=== PATIENT | female | born 1930 | race Caucasian/White ===

== ENCOUNTER 2016-08-19 | Outpatient (CLI) | payer MEDICARE, OTHER | END 2016-08-19 08:27 | disposition EMS.NT ==

== ENCOUNTER 2018-09-27 18:55 | Outpatient (CLI) | payer SELFPAY | END 2018-09-27 18:56 | disposition EMS.NT | LOC: EMS 18:55 | PROVIDERS: ATTEND Surgery | DX: R53.1 Weakness (principal) ==

== ENCOUNTER 2018-09-28 11:25 | Outpatient (CLI) | payer MEDICARE, OTHER, MEDICAID | END 2018-09-28 11:26 | disposition critical access hospital (66) | LOC: EMS 11:25 | PROVIDERS: ATTEND Surgery | DX: R53.1 Weakness (principal); R30.9 Painful micturition, unspecified; R35.0 Frequency of micturition | CPT/HCPCS: A0425; A0429 ==

== ENCOUNTER 2018-09-28 11:47 | Inpatient (IN) | payer MEDICARE, OTHER, MEDICAID ==
[2018-09-28 12:21] LABS: BILIRUBIN,URINE NEGATIVE (NEGATIVE); GLUCOSE, URINE (UA) NEGATIVE (NEGATIVE); KETONES,URINE (UA) NEGATIVE (NEGATIVE); LEUKOCYTE ESTERASE, URINE NEGATIVE (NEGATIVE); NITRITE,URINE NEGATIVE (NEGATIVE); OCCULT BLOOD,URINE NEGATIVE (NEGATIVE); PH,URINE 5.5 PH (5.0-7.5); PROTEIN,URINE NEGATIVE (NEGATIVE); UROBILINOGEN,URINE 0.2 (NORMAL) E.U./dL (NORMAL)
[2018-09-28 12:22] LABS: CLARITY,URINE CLEAR (CLEAR)
--- NOTE | 2018-09-28 13:00 | ED Physician Documentation ---
History of Present Illness - Stated complaint Stated Complaint: WEAKNESS - Chief complaint Chief Complaint: General - History obtained from History obtained from: Patient, Family, EMS - History of Present Illness Timing: How many days ago (4) - Additonal information Additional information: 88-year-old female who is usually able to get herself out of bed use a walker and get to the bathroom has over the past 4 days been unable to even sit up in bed. She states that she feels generally weak and she has not had other specific symptoms. She did not feel that she was ill prior to all of this. She last saw her primary care doctor about 2 weeks ago on a routine visit. Review of Systems Constitutional: denies: Fever Nose: denies: Rhinorrhea / runny nose Respiratory: reports: Cough. denies: Dyspnea GI: denies: Abdominal Pain, Nausea, Vomiting, Constipation, Diarrhea : denies: Dysuria, Frequency Skin: denies: Rash Musculoskeletal: denies: Neck pain, Back pain, Extremity pain Neurologic: reports: Generalized weakness. denies: Focal weakness, Numbness, Difficulty speaking PD PAST MEDICAL HISTORY - Past Medical History Cardiovascular: Hypertension, High cholesterol Respiratory: Shortness of breath, Other Endocrine/Autoimmune: None GI: None : None HEENT: None Psych: None Musculoskeletal: Osteoarthritis, Fibromyalgia, Fatigue, Chronic back pain Derm: Other - Past Surgical History HEENT: Tonsil/Adenoidectomy - Present Medications Home Medications: Ambulatory Orders Medication Instructions Recorded Confirmed Aspirin [Adult Low Dose Aspirin EC] 81 mg PO DAILY 09/06/15 09/06/15 Calcium/D3/Mag Ox/Administrative Services Specialist/Gustavo/Zn 1 each PO DAILY 09/06/15 09/06/15 [Caltrate+D3 Plus Mineral Minis] Chlorthalidone 0 mg DAILY 09/06/15 09/06/15 Cholecalciferol (Vitamin D3) 1,000 unit PO DAILY 09/06/15 09/06/15 [Vitamin D] HYDROcod/ACETAM 5/325 [Vicodin 1 each PO DAILY 09/06/15 09/06/15 5/325] Multivitamin-Minerals No.55 100 mcg PO DAILY 09/06/15 09/06/15 [Centrum Flavor Burst Adult Chw] Pravastatin Sodium 40 mg PO DAILY 09/06/15 09/06/15 amLODIPine [Norvasc] 10 mg PO DAILY 09/06/15 09/06/15 - Allergies Allergies/Adverse Reactions: Allergies Allergy/AdvReac Type Severity Reaction Status Date / Time codeine AdvReac Emesis Verified 09/28/18 12:24 PD ED PE NORMAL - Vitals Vital signs reviewed: Yes (hypertensive and hypoxic ) - General General: Alert and oriented X 3, No acute distress, Well developed/nourished - HEENT HEENT: Atraumatic, PERRL, EOMI, Other (dry mucous membranes ) - Neck Neck: Supple, no meningeal sign - Cardiac Cardiac: No murmur, Other (tachy to 100) - Respiratory Respiratory: No respiratory distress, Other (bibasilar rhonchi) - Abdomen Abdomen: Soft, Non tender, Other (0bese) - Back Back: No CVA TTP, No spinal TTP - Derm Derm: Normal color, Warm and dry, No rash - Extremities Extremities: No deformity, No edema, Other (There is scaly erythematous skin to the anterior calf bilaterally ) - Neuro Neuro: Alert and oriented X 3, residential real estate agent 2-12 intact, No motor deficit, No sensory deficit, Normal speech, Other (weakness is apparent generally ) Eye Opening: Spontaneous Motor: Obeys Commands Verbal: Oriented GCS Score: 15 - Psych Psych: Normal mood, Normal affect Results - Vitals Vitals: Vital Signs - 24 hr 09/28/18 09/28/18 09/28/18 12:00 14:48 14:59 Temperature 36.9 C Heart Rate 87 98 Respiratory 20 Rate Blood Pressure 155/68 H 164/59 H O2 Saturation 91 L 90 L 92 Oxygen O2 Source Nasal cannula - EKG (time done) 1324 Rate: Rate (enter#) (89) Rhythm: Atrial fibrillation [place]: LAD QRS: Low voltage Ischemia: Q waves, Non specific changes Compare to prior EKG: Old EKG unavailable Computer interpretation: Agree with computer - Labs Labs: Laboratory Tests 09/28/18 09/28/18 09/28/18 02:44 02:44 12:10 WBC RBC Hgb Hct MCV MCH MCHC RDW Plt Count MPV Neut # (Auto) Lymph # (Auto) [place] # (Auto) Eos # (Auto) Baso # (Auto) Absolute Nucleated RBC Nucleated RBC % Sodium 133 L Potassium 4.9 Chloride 103 Carbon Dioxide 22 Anion Gap 8.0 BUN 40 H Creatinine 1.5 H Estimated GFR (MDRD) 33 L Glucose 102 H Lactic Acid 1.1 Calcium 8.8 Total Bilirubin 0.7 AST 34 ALT 27 Alkaline Phosphatase 98 Troponin I B-Natriuretic Peptide Total Protein 6.1 L Albumin 2.6 L Globulin 3.5 Albumin/Globulin Ratio 0.7 L Lipase 28 Urine Color YELLOW Urine Clarity CLEAR Urine pH 5.5 Ur Specific [place] 1.025 Urine Protein NEGATIVE Urine Glucose (UA) NEGATIVE Urine Ketones NEGATIVE Urine Occult Blood NEGATIVE Urine Nitrite NEGATIVE Urine Bilirubin NEGATIVE Urine Urobilinogen 0.2 (NORMAL) Ur Leukocyte Esterase NEGATIVE Ur Microscopic Review NOT INDICATED Urine Culture Comments NOT INDICATED 09/28/18 09/28/18 09/28/18 13:10 13:10 13:10 WBC 18.3 H RBC 3.77 L Hgb 10.7 L Hct 33.3 L MCV 88.3 MCH 28.4 MCHC 32.1 RDW 18.3 H Plt Count 315 MPV 10.2 Neut # (Auto) 16.3 H Lymph # (Auto) 0.7 L [place] # (Auto) 1.2 H Eos # (Auto) 0.0 Baso # (Auto) 0.1 Absolute Nucleated RBC 0.00 Nucleated RBC % 0.0 Sodium Potassium Chloride Carbon Dioxide Anion Gap BUN Creatinine Estimated GFR (MDRD) Glucose Lactic Acid Calcium Total Bilirubin AST ALT Alkaline Phosphatase Troponin I 0.14 B-Natriuretic Peptide 194 H Total Protein Albumin Globulin Albumin/Globulin Ratio Lipase Urine Color Urine Clarity Urine pH Ur Specific [place] Urine Protein Urine Glucose (UA) Urine Ketones Urine Occult Blood Urine Nitrite Urine Bilirubin Urine Urobilinogen Ur Leukocyte Esterase Ur Microscopic Review Urine Culture Comments - Rads (name of study) chest 1 veiw Radiology: Prelim report reviewed, EMP read indepedently (looks like bibasilar infiltrate. ), See rad report Procedures - IVC sono (time) 1250 Bedside IVC sono: IVC measures (cm) (1.09), Dehydration (est 1 liter deficit.) PD MEDICAL DECISION MAKING - ED course Complexity details: reviewed old records, reviewed results, re-evaluated patient, considered differential, d/w patient, d/w family ED course: 88-year-old female with generalized weakness is afebrile is mildly hypoxic and has bibasilar rhonchi. I suspect she may have some pneumonia she is dehydrated on interrogation of the inferior vena cava and she is administered saline as well. The patient has elevated white blood cell count she is hypoxic in the low 90s and she has bibasilar infiltrate on chest x-ray. She is administered Rocephin as well as saline and will need admission to the hospital. Departure - Departure Disposition: [facility] DC/Xfer Clinical Impression: Pneumonia Qualifiers: Pneumonia type: due to unspecified organism Laterality: bilateral Lung location: lower lobe of lung Qualified Code(s): J18.1 - Lobar pneumonia, unspecified organism Condition: Fair
[2018-09-28] MEDS ORDERED: SODIUM CHLORIDE 0.9% 1,000 ML IV ONE (13:02)
[2018-09-28 13:50] LABS: BASOPHILS # (AUTO) 0.1 10^3/uL (0.0-0.1); BASOPHILS % (AUTO) 0.6 %; EOSINOPHILS % (AUTO) 0.1 %; HGB - HEMOGLOBIN 10.7 g/dL (12.0-16.0); LYMPHOCYTES # (AUTO) 0.7 10^3/uL (1.5-3.5); LYMPHOCYTES % (AUTO) 3.6 %; MEAN CORPUSCULAR HEMOGLOBIN 28.4 pg (27.0-31.0); MEAN CORPUSCULAR HGB CONC 32.1 g/dL (32.0-36.0); MEAN CORPUSCULAR VOLUME 88.3 fL (81.0-99.0); MEAN PLATELET VOLUME 10.2 fL (7.9-10.8); MONOCYTES # (AUTO) 1.2 10^3/uL (0.0-1.0); MONOCYTES % (AUTO) 6.6 %; NEUTROPHILS # (AUTO) 16.3 10^3/uL (1.5-6.6); NEUTROPHILS % (AUTO) 89.1 %; PLT - PLATELET COUNT 315 10^3/uL (130-450); RED BLOOD COUNT 3.77 10^6/uL (4.20-5.40); RED CELL DISTRIBUTION WIDTH 18.3 % (12.0-15.0); WHITE BLOOD COUNT 18.3 x10^3/uL (4.8-10.8)
[2018-09-28 14:02] LABS: ALBUMIN 2.6 g/dL (3.2-5.5); ALBUMIN/GLOBULIN RATIO 0.7 (1.0-2.2); BILIRUBIN,TOTAL 0.7 mg/dL (0.2-1.0); CALCIUM 8.8 mg/dL (8.5-10.3); CREATININE 1.5 mg/dL (0.4-1.0); TOTAL PROTEIN 6.1 g/dL (6.7-8.2)
[2018-09-28] MEDS ORDERED: cefTRIAXone 1 GM in SODIUM CHLORIDE 0.9% MINIBAG 100 ML IV STA (14:28)
[2018-09-28] MEDS ORDERED: KETOROLAC 30 MG/ML VIAL IVP STA (14:29)
[2018-09-28] MEDS ORDERED: HYDROmorphone 1 MG/ML CARPUJECT IVP STA (15:41)
[2018-09-28] MEDS ORDERED: ONDANSETRON 4 MG/2 ML VIAL IVP STA (15:41)
[2018-09-28] MEDS ORDERED: ACETAMINOPHEN 325 MG TABLET PO PRN (15:47)
[2018-09-28] MEDS ORDERED: TEMAZEPAM 15 MG CAPSULE PO PRN (15:47)
--- NOTE | 2018-09-28 18:22 | HISTORY & PHYSICAL EXAMINATION ---
Chief Complaint - Chief Complaint Chief Complaint: shortness of breath, productive cough Respiratory Admission HPI - Admitted From Admitted from: ED - History Obtained From Records Reviewed: RN notes reviewed, Old records reviewed History obtained from: Patient, Family Exam limitations: Other - History of Present Illness Severity at the worst: reports: Moderate Context of Onset: reports: Exertion, Inspiration Timing: reports: Gradual onset (over the past 4 days) Improved with: reports: Nothing Worsened by: reports: Exertion, Movement Associated symptoms: reports: Nausea, Feeling faint / dizzy, General weakness HPI Comment/Other: Otilia Diane is a morbidly obese 88-year old female with a past medical history of hypertension, hyperlipidemia, chronic pain, dementia, 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 The patient was accompanied by her , Nacho who reports that his has not been acting herself beginning about 4 days ago. She normally can walk with her walker and get to her chair where she watches TV all day or to the bathroom. She reported that she has been generally weak, with a poor appetite, and a productive cough. They believe that she last saw her PCP in [place] a few weeks ago for a regular check up. Upon arrival to the ED the patient was found to be hypoxic with a room air oxygen saturation of 89%, temp of 36.9, heart rate of 98, respiratory rate of 22, B/P of 164/59. Labs show an elevated WBC count of 18.3, anemia with an H/H of 10.7/33.3, an elevated troponin of 0.14, BNP of 194, creatinine of 1.5 with an unknown baseline, sodium of 133, K of 4.9, BUN of 40, and a low GFR of 33. A urine sample appeared normal. Imaging confirmed bilateral PNA, an IVC US measurement showed dehydration with a deficit ~ 1L. On exam, she denies chest pain, chest pressure, nausea, dizziness, and denied a heart history, although a poor historian. She denies fevers, chills, vomiting, or diarrhea at home but admits to her also being sick. She will be admitted for treatment of PNA as an inpatient. PMH/PSH - Past Medical History Cardiovascular: positive: Congestive heart failure, Hypertension, High cholesterol, Peripheral Vascular Disease, Atrial fibrillation, Murmur, Arrhythmia Respiratory: positive: COPD, Pneumonia, Shortness of breath, Sleep apnea, Other Neuro: positive: Alzhiemer's, Dementia, Headaches, Tremors Endocrine/Autoimmune: positive: None GI: positive: GERD : positive: Incontinence, Renal insuffiency, Nocturia HEENT: positive: Chronic vision loss, Chronic hearing loss Psych: positive: Depression Musculoskeletal: positive: Osteoarthritis, Fibromyalgia, Fatigue, Chronic back pain Derm: positive: Other MRSA Hx?: No - Past Surgical History HEENT: positive: Tonsil/Adenoidectomy Social & Family Hx - Living Situation Living Arrangement: At home Living Situation: With spouse/s.o. - Social History Does the pt smoke?: No Smoking Status: Former smoker (age [age]) Does the pt drink ETOH?: No Does the pt have substance abuse?: No - POLST Patient has POLST: No POLST Status: DNR - Family History Family History: Mother: , CAD, Father: , CAD Meds/Allgy - Home Medications Home Medications: Ambulatory Orders Medication Instructions Recorded Confirmed Aspirin [Adult Low Dose Aspirin EC] 81 mg PO DAILY 09/06/15 09/06/15 Calcium/D3/Mag Ox/Hvac Design Engineer/Gustavo/Zn 1 each PO DAILY 09/06/15 09/06/15 [Caltrate+D3 Plus Mineral Minis] Chlorthalidone 0 mg DAILY 09/06/15 09/06/15 Cholecalciferol (Vitamin D3) 1,000 unit PO DAILY 09/06/15 09/06/15 [Vitamin D] HYDROcod/ACETAM 5/325 [Vicodin 1 each PO DAILY 09/06/15 09/06/15 5/325] Multivitamin-Minerals No.55 100 mcg PO DAILY 09/06/15 09/06/15 [Centrum Flavor Burst Adult Chw] Pravastatin Sodium 40 mg PO DAILY 09/06/15 09/06/15 amLODIPine [Norvasc] 10 mg PO DAILY 09/06/15 09/06/15 - Allergies Allergies/Adverse Reactions: Allergies Allergy/AdvReac Type Severity Reaction Status Date / Time codeine AdvReac Emesis Verified 09/28/18 12:24 Prior Level of Functionality: up with walker, low level of functioning Exam - Vital Signs Reviewed Vital Signs: Yes Vital Signs: Vital Signs x48h Temp Pulse Pulse Resp BP BP Pulse Ox 09/28/18 17:58 36.8 C 80 20 146/52 H 93 09/28/18 16:48 36.8 C 93 20 138/63 H 92 09/28/18 14:59 92 09/28/18 14:48 98 164/59 H 90 L 09/28/18 12:00 36.9 C 87 20 155/68 H 91 L - Physical Exam General Appearance: positive: No acute distress, Alert, Lethargic Eyes Bilateral: positive: PERRL ENT: positive: Pharynx nml, Dry mucous membranes Neck: positive: No JVD, Trachea midline, Lymphadenopathy (R), Lymphadenopathy (L), Stiff neck Respiratory: positive: Chest non-tender, Wheezes, Rhonchi Cardiovascular: positive: Irregularly irregular, Tachycardia, Systolic murmur, Gallop/S3, Decreased pulse(s) Peripheral Pulses: positive: 1+ Abdomen: positive: Non-tender, Nml bowel sounds, Other (rounded, soft) Back: positive: Nml inspection Skin: positive: No rash, Warm, Dry, Cyanosis Extremities: positive: Non-tender, Pedal edema (venous status ulcers- BLE edema), Joint swelling Neurologic/Psychiatric: positive: Disoriented to place, Disoriented to time, W eakness, Sensory loss, Depressed mood/affect, Other (baseline dementia) Reflexes: Bicep (R): 2+, Bicep (L): 2+ Results - Lab Results Lab results reviewed: Yes Fish Bones: 09/28/18 13:10 09/28/18 02:44 Other Lab Results: Lab Results x24hrs 09/28/18 09/28/18 09/28/18 Range/Units 13:10 13:10 13:10 WBC 18.3 H (4.8-10.8) x10^3/uL RBC 3.77 L (4.20-5.40) 10^6/uL Hgb 10.7 L (12.0-16.0) g/dL Hct 33.3 L (37.0-47.0) % MCV 88.3 (81.0-99.0) fL MCH 28.4 (27.0-31.0) pg MCHC 32.1 (32.0-36.0) g/dL RDW 18.3 H (12.0-15.0) % Plt Count 315 (130-450) 10^3/uL MPV 10.2 (7.9-10.8) fL Neut # (Auto) 16.3 H (1.5-6.6) 10^3/uL Lymph # (Auto) 0.7 L (1.5-3.5) 10^3/uL [place] # (Auto) 1.2 H (0.0-1.0) 10^3/uL Eos # (Auto) 0.0 (0.0-0.7) 10^3/uL Baso # (Auto) 0.1 (0.0-0.1) 10^3/uL Absolute Nucleated RBC 0.00 x10^3/uL Nucleated RBC % 0.0 /100WBC Sodium (135-145) mmol/L Potassium (3.5-5.0) mmol/L Chloride (101-111) mmol/L Carbon Dioxide (21-32) mmol/L Anion Gap (6-13) BUN (6-20) mg/dL Creatinine (0.4-1.0) mg/dL Estimated GFR (MDRD) (>89) Glucose (70-100) mg/dL Lactic Acid (0.5-2.2) mmol/L Calcium (8.5-10.3) mg/dL Total Bilirubin (0.2-1.0) mg/dL AST (10-42) IU/L ALT (10-60) IU/L Alkaline Phosphatase (42-121) IU/L Troponin I 0.14 (<0.49) ng/mL B-Natriuretic Peptide 194 H (5-100) pg/mL Total Protein (6.7-8.2) g/dL Albumin (3.2-5.5) g/dL Globulin (2.1-4.2) g/dL Albumin/Globulin Ratio (1.0-2.2) Lipase (22-51) U/L Urine Color Urine Clarity (CLEAR) Urine pH (5.0-7.5) PH Ur Specific [place] (1.002-1.030) Urine Protein (NEGATIVE) mg/dL Urine Glucose (UA) (NEGATIVE) mg/dL Urine Ketones (NEGATIVE) mg/dL Urine Occult Blood (NEGATIVE) Urine Nitrite (NEGATIVE) Urine Bilirubin (NEGATIVE) Urine Urobilinogen (NORMAL) E.U./dL Ur Leukocyte Esterase (NEGATIVE) Ur Microscopic Review Urine Culture Comments 09/28/18 09/28/18 09/28/18 Range/Units 12:10 02:44 02:44 WBC (4.8-10.8) x10^3/uL RBC (4.20-5.40) 10^6/uL Hgb (12.0-16.0) g/dL Hct (37.0-47.0) % MCV (81.0-99.0) fL MCH (27.0-31.0) pg MCHC (32.0-36.0) g/dL RDW (12.0-15.0) % Plt Count (130-450) 10^3/uL MPV (7.9-10.8) fL Neut # (Auto) (1.5-6.6) 10^3/uL Lymph # (Auto) (1.5-3.5) 10^3/uL [place] # (Auto) (0.0-1.0) 10^3/uL Eos # (Auto) (0.0-0.7) 10^3/uL Baso # (Auto) (0.0-0.1) 10^3/uL Absolute Nucleated RBC x10^3/uL Nucleated RBC % /100WBC Sodium 133 L (135-145) mmol/L Potassium 4.9 (3.5-5.0) mmol/L Chloride 103 (101-111) mmol/L Carbon Dioxide 22 (21-32) mmol/L Anion Gap 8.0 (6-13) BUN 40 H (6-20) mg/dL Creatinine 1.5 H (0.4-1.0) mg/dL Estimated GFR (MDRD) 33 L (>89) Glucose 102 H (70-100) mg/dL Lactic Acid 1.1 (0.5-2.2) mmol/L Calcium 8.8 (8.5-10.3) mg/dL Total Bilirubin 0.7 (0.2-1.0) mg/dL AST 34 (10-42) IU/L ALT 27 (10-60) IU/L Alkaline Phosphatase 98 (42-121) IU/L Troponin I (<0.49) ng/mL B-Natriuretic Peptide (5-100) pg/mL Total Protein 6.1 L (6.7-8.2) g/dL Albumin 2.6 L (3.2-5.5) g/dL Globulin 3.5 (2.1-4.2) g/dL Albumin/Globulin Ratio 0.7 L (1.0-2.2) Lipase 28 (22-51) U/L Urine Color YELLOW Urine Clarity CLEAR (CLEAR) Urine pH 5.5 (5.0-7.5) PH Ur Specific [place] 1.025 (1.002-1.030) Urine Protein NEGATIVE (NEGATIVE) mg/dL Urine Glucose (UA) NEGATIVE (NEGATIVE) mg/dL Urine Ketones NEGATIVE (NEGATIVE) mg/dL Urine Occult Blood NEGATIVE (NEGATIVE) Urine Nitrite NEGATIVE (NEGATIVE) Urine Bilirubin NEGATIVE (NEGATIVE) Urine Urobilinogen 0.2 (NORMAL) (NORMAL) E.U./dL Ur Leukocyte Esterase NEGATIVE (NEGATIVE) Ur Microscopic Review NOT INDICATED Urine Culture Comments NOT INDICATED - Diagnostic Imaging Results Diagnostic Imaging Results: positive: Prelim report reviewed - EKG Results EKG Interpreted Independently: Yes EKG Comparison: positive: No prior EKG EKG Findings: a fib, re-ordered Sepsis Event Note (H) - Evaluation Current Stage of Sepsis: Ruled out Impression/Plan - Problem List Problem List: Bilateral pneumonia: Preliminary results show bilateral PNA, got Rocephin in the ED. Will continue with unasyn as I suspect aspiration with evidence of choking while drinking milk. COPD with Hypoxia: Tobacco dependence from age [age]. No home oxygen use. Hypoxia upon admission in the ED. Continue oxygen, respiratory cares, nebulizers and avoid steroids in the setting of the elevated troponin. SERGE: Unknown baseline creatinine. 1.5 upon admission, dehydration was found on IVC US done in the ED with ~ 1L deficit. Atrial fibrillation: Patient denies Hx of this, no anticoagulants, no rate control meds on preliminary med list. Elevated troponin: Not informed of this elevation prior to acceptance, but found to be 0.14 when reviewing the records. Recheck in 6 hours, x2. No chest pain on exam. Await echo results. Patient denies cardiac interventions and is a DNR. May not be a candidate for angioplasty given her profound dementia. Morbid obesity: Life long, exacerbated by CHF. Low tolerance to activity. Moderate dementia: Unknown how much of her confusion is baseline, verses chronic dementia. Lives independently with her and they deny recent falls. Scattered bruising is appreciated upon exam. Core Measures - Anticipated LOS I expect patient to be DC'd or transferred within 96 hours.: Yes - DVT/VTE - Prophylaxis VTE/DVT Device ordered at admit?: Yes VTE/DVT Prophylaxis med ordered at admit?: Yes - Stroke - Rehab Assessment Rehab services assessment to be ordered?: Yes - AMI - Statin at Admit Aspirin Prescribed on Admit: Yes
[2018-09-28] MEDS ORDERED: LEVALBUTEROL 1.25 MG/3 ML NEB INH PRN (20:15)
[2018-09-28] MEDS: ASPIRIN 325 MG TABLET PO SCH (20:55)
[2018-09-28] MEDS: ATORVASTATIN 40 MG TABLET PO SCH (20:55)
[2018-09-28] MEDS: SODIUM CHLORIDE FLUSH 0.9% 10 ML SYRINGE IVP SCH (20:56)
[2018-09-28] MEDS ORDERED: AMPICILLIN/SULBACTAM 1.5 GM in SODIUM CHLORIDE 0.9% MINIBAG 100 ML IV SCH (21:00)
[2018-09-28] MEDS: SODIUM CHLORIDE 0.9% 1,000 ML IV SCH (21:03)
[2018-09-28] MEDS: AMPICILLIN/SULBACTAM 1.5 GM in SODIUM CHLORIDE 0.9% MINIBAG 100 ML IV SCH (21:03)
[2018-09-29] MEDS: SODIUM CHLORIDE FLUSH 0.9% 10 ML SYRINGE IVP SCH ×4 (01:50→23:53)
[2018-09-29 05:03] LABS: BASOPHILS % (AUTO) 0.3 %; EOSINOPHILS # (AUTO) 0.1 10^3/uL (0.0-0.7); EOSINOPHILS % (AUTO) 0.7 %; HGB - HEMOGLOBIN 9.5 g/dL (12.0-16.0); LYMPHOCYTES # (AUTO) 0.9 10^3/uL (1.5-3.5); LYMPHOCYTES % (AUTO) 7.1 %; MEAN CORPUSCULAR HEMOGLOBIN 28.1 pg (27.0-31.0); MEAN CORPUSCULAR HGB CONC 30.8 g/dL (32.0-36.0); MEAN CORPUSCULAR VOLUME 91.1 fL (81.0-99.0); MEAN PLATELET VOLUME 9.8 fL (7.9-10.8); MONOCYTES # (AUTO) 1.1 10^3/uL (0.0-1.0); MONOCYTES % (AUTO) 8.8 %; NEUTROPHILS # (AUTO) 10.1 10^3/uL (1.5-6.6); NEUTROPHILS % (AUTO) 83.1 %; PLT - PLATELET COUNT 246 10^3/uL (130-450); RED BLOOD COUNT 3.38 10^6/uL (4.20-5.40); RED CELL DISTRIBUTION WIDTH 18.3 % (12.0-15.0); WHITE BLOOD COUNT 12.1 x10^3/uL (4.8-10.8)
[2018-09-29 05:15] LABS: ALBUMIN/GLOBULIN RATIO 0.6 (1.0-2.2); BILIRUBIN,TOTAL 0.4 mg/dL (0.2-1.0); CREATININE 1.6 mg/dL (0.4-1.0); MAGNESIUM 2.3 mg/dL (1.7-2.8); TOTAL PROTEIN 5.1 g/dL (6.7-8.2)
[2018-09-29] MEDS: PANTOPRAZOLE 40 MG TABLET PO SCH (06:28)
[2018-09-29] MEDS: LEVALBUTEROL 1.25 MG/3 ML NEB INH SCH ×5 (09:09→19:22)
[2018-09-29] MEDS: SODIUM CHLORIDE 0.9% 1,000 ML IV SCH (09:37)
[2018-09-29] MEDS: AMPICILLIN/SULBACTAM 1.5 GM in SODIUM CHLORIDE 0.9% MINIBAG 100 ML IV SCH ×2 (09:38→20:08)
[2018-09-29] MEDS: ASPIRIN 325 MG TABLET PO SCH (09:40)
[2018-09-29] MEDS: HEPARIN 5,000 UNIT/ML VIAL SUBQ SCH ×3 (09:40→20:12)
[2018-09-29] MEDS: POLYETHYLENE GLYCOL 3350 17 GM PACKET PO SCH (09:40)
[2018-09-29] MEDS ORDERED: AZITHROMYCIN INJ 500 MG in SODIUM CHLORIDE 0.9% 250 ML IV SCH (11:00)
--- NOTE | 2018-09-29 12:21 | XRAY Report ---
Reason: sob Procedure Date: 09/29/2018 Accession Number: [id number] / [id number] Procedure: XR - Chest 1 View X-Ray CPT Code: 80053 FULL RESULT: EXAM: CHEST RADIOGRAPHY EXAM DATE: 09/29/2018 12:02 PM. CLINICAL HISTORY: Shortness of breath COMPARISON: CHEST 1 VIEW 09/28/2018 2:08 PM. TECHNIQUE: 1 view. FINDINGS: Lungs/Pleura: Lungs are hypoinflated. There is perihilar vascular crowding and increase in perihilar and basilar atelectasis. Possible small effusions. Prominence of the pulmonary vascular padding suggesting superimposed edema. Mediastinum: Heart size is borderline enlarged for technique. Mediastinal and hilar contours are unchanged. Other: None. IMPRESSION: Interval worsening in fluid status and aeration. Increase in perihilar and basilar atelectasis, probable small bilateral effusion and mild superimposed edema pattern. RADIA
[2018-09-29] MEDS: IPRATROPIUM 0.2 MG/ML NEB INH PRN (13:09)
[2018-09-29] MEDS: FUROSEMIDE 20 MG TABLET PO SCH (13:40)
[2018-09-29] MEDS: GABAPENTIN 300 MG CAPSULE PO SCH ×2 (13:41→20:08)
[2018-09-29] MEDS: LOSARTAN 50 MG TABLET PO SCH (13:41)
[2018-09-29] MEDS ORDERED: diltiaZEM CD 120 MG CAPSULE PO ONE (13:43)
[2018-09-29] MEDS: diltiaZEM CD 240 MG CAPSULE PO SCH (13:44)
[2018-09-29] MEDS: MORPHINE 2 MG/ML SYRINGE IVP PRN ×2 (14:23→21:10)
--- NOTE | 2018-09-29 15:16 | PROVIDER PROGRESS NOTE ---
Subjective - Prog Note Date Prog Note Date: 09/29/18 - Subjective Pt reports feeling: No change Subjective: pt present cough, SOB. pt need 6 lifer of O2 on NC with 93% sats. pt denies fever, chill, chest pain. Current Medications - Current Medications Current Medications: Active Medications Acetaminophen (Tylenol) 650 mg PO Q4HR PRN PRN Reason: Pain 1 to 4 Aspirin (Ecotrin) 81 mg PO DAILY COUNT INCLUDES THE [facility] Atorvastatin Calcium (Lipitor) 80 mg PO QPM COUNT INCLUDES THE [facility] Last Admin: 09/28/18 20:55 Dose: 80 mg Calcium Carbonate/Glycine (Oysco-500) 500 mg PO DAILY COUNT INCLUDES THE [facility] Chlorthalidone (Chlorthalidone) 25 mg PO DAILY COUNT INCLUDES THE [facility] Cholecalciferol (Vitamin D3) 1,000 unit PO DAILY COUNT INCLUDES THE [facility] Diltiazem HCl (Cardizem Cd) 240 mg PO DAILY COUNT INCLUDES THE [facility] Last Admin: 09/29/18 13:44 Dose: 240 mg Furosemide (Lasix) 20 mg PO BIDDIURETIC COUNT INCLUDES THE [facility] Last Admin: 09/29/18 13:40 Dose: 20 mg Gabapentin (Neurontin) 300 mg PO TID COUNT INCLUDES THE [facility] Last Admin: 09/29/18 13:41 Dose: 300 mg Heparin Sodium (Porcine) () 5,000 unit SUBQ BID COUNT INCLUDES THE [facility] Last Admin: 09/29/18 10:11 Dose: Not Given Ampicillin Sodium/Sulbactam (Sodium 1.5 gm/ Sodium Chloride) 100 mls @ 200 mls/hr IV Q12H COUNT INCLUDES THE [facility] Last Infusion: 09/29/18 10:13 Dose: Infused Azithromycin 500 mg/ Sodium (Chloride) 250 mls @ 250 mls/hr IV DAILY COUNT INCLUDES THE [facility] Last Infusion: 09/29/18 13:35 Dose: Infused Ipratropium [place] (Atrovent) 0.5 mg INH RTQ4H PRN PRN Reason: Shortness of Air/Wheezing Last Admin: 09/29/18 13:09 Dose: 0.5 mg Levalbuterol HCl (Xopenex) 1.25 mg INH Q4H PRN PRN Reason: Shortness of Air/Wheezing Levalbuterol HCl (Xopenex) 1.25 mg INH RTQ6H COUNT INCLUDES THE [facility] Last Admin: 09/29/18 13:09 Dose: 1.25 mg Losartan Potassium (Cozaar) 50 mg PO DAILY COUNT INCLUDES THE [facility] Last Admin: 09/29/18 13:41 Dose: 50 mg Morphine Sulfate (Morphine) 2 mg IVP Q2H PRN PRN Reason: PAIN Last Admin: 09/29/18 14:23 Dose: 2 mg Multi-Ingredient Ointment (Zinc Oxide) 1 applic TOP PRN PRN PRN Reason: Skin Care Pantoprazole Sodium (Protonix) 40 mg PO QDAC COUNT INCLUDES THE [facility] Last Admin: 09/29/18 06:28 Dose: Not Given Polyethylene Glycol (Miralax) 17 gm PO DAILY COUNT INCLUDES THE [facility] Last Admin: 09/29/18 09:40 Dose: 17 gm Sodium Chloride (Normal Saline Flush 0.9%) 10 ml IVP PRN PRN PRN Reason: NEEDED PER PROVIDER ORDERS Sodium Chloride (Normal Saline Flush 0.9%) 10 ml IVP 0100,0900,1700 COUNT INCLUDES THE [facility] Last Admin: 09/29/18 10:12 Dose: Not Given Temazepam (Restoril) 15 mg PO QPM PRN PRN Reason: Insomnia Aspirin [Adult Low Dose Aspirin EC] 81 mg PO DAILY 09/06/15 Calcium/D3/Mag Ox/[employer]/Gustavo/Zn [Caltrate+D3 Plus Mineral Minis] 1 each PO DAILY 09/06/15 Chlorthalidone 25 mg PO DAILY 09/06/15 Cholecalciferol (Vitamin D3) [Vitamin D] 1,000 unit PO DAILY 09/06/15 Multivitamin-Minerals No.55 [Centrum Flavor Burst Adult Chw] 100 mcg PO DAILY 09/06/15 Acetaminophen [Tylenol Extra Strength] 500 mg PO TID PRN 09/29/18 Atorvastatin Calcium 20 mg PO QPM 09/29/18 Furosemide [Lasix] 20 mg PO DAILY 09/29/18 Gabapentin [Neurontin] 300 mg PO TID 09/29/18 Losartan [Cozaar] 50 mg PO DAILY 09/29/18 Vitamin E (Dl,Tocopheryl Acet) [Vitamin E] 400 unit PO DAILY 09/29/18 diltiaZEM CD [Cardizem Cd] 240 mg PO DAILY 09/29/18 Objective - Vital Signs/Intake & Output Reviewed Vital Signs: Yes Vital Signs: Vital Signs x48h Temp Pulse Pulse Resp BP Pulse Ox 09/29/18 13:13 97 22 09/29/18 13:00 36.7 C 100 22 108/75 96 09/29/18 09:18 36.7 C 90 22 93 09/29/18 09:11 90 22 09/29/18 08:05 36.7 C 82 21 138/69 H 91 L Intake & Output: Intake & Output 09/26/18 09/27/18 09/28/18 09/29/18 23:59 23:59 23:59 23:59 Intake Total 1436 2030 Output Total 2049 500 Balance -614 1530 - Objective General Appearance: positive: Alert, Mild distress. negative: Lethargic Eyes Bilateral: positive: Normal inspection, PERRL, No lid inflammation, Conjunctivae nml ENT: positive: ENT inspection nml, Pharynx nml, No signs of dehydration. negative: Purulent nasal drainage, Pharyngeal erythema, Oral lesions Neck: positive: Nml inspection, Thyroid nml, No JVD. negative: Trachea midline, Thyromegaly, Lymphadenopathy (R), Lymphadenopathy (L), Stiff neck, Swelling/bruising, Tracheal deviation Respiratory: positive: Chest non-tender, Rhonchi. negative: Wheezes, Rales Cardiovascular: positive: Regular rate & rhythm, No murmur, No gallop. negative: Irregularly irregular, Extrasystoles, Tachycardia, Bradycardia, JVD present, Systolic murmur, Diastolic murmur Peripheral Pulses: 2+ Radial (R), 2+ Radial (L), 2+ Dorsalis pedis (R), 2+ Dorsalis pedis (L) Abdomen: positive: Non-tender, No organomegaly, Nml bowel sounds, No distention. negative: Tenderness, Guarding, Rebound Back: positive: Nml inspection. negative: CVA tenderness (R), CVA tenderness (L) Skin: positive: Color nml, No rash, Warm, Dry. negative: Cyanosis, Diaphoresis, Pallor Extremities: positive: Non-tender, Nml appearance. negative: Calf tenderness, Joint swelling, Maria D's sign/cords Neurologic/Psychiatric: positive: Oriented x3, Sensation nml, Mood/affect nml. negative: Weakness, Sensory loss, Facial droop, Slurred/abnml speech, Depressed mood/affect - Lab Results Fish Bones: 09/29/18 04:52 09/29/18 04:52 Other Labs: Lab Results x24hrs 09/29/18 09/29/18 09/29/18 Range/Units 04:52 04:52 04:52 WBC (4.8-10.8) x10^3/uL RBC (4.20-5.40) 10^6/uL Hgb (12.0-16.0) g/dL Hct (37.0-47.0) % MCV (81.0-99.0) fL MCH (27.0-31.0) pg MCHC (32.0-36.0) g/dL RDW (12.0-15.0) % Plt Count (130-450) 10^3/uL MPV (7.9-10.8) fL Neut # (Auto) (1.5-6.6) 10^3/uL Lymph # (Auto) (1.5-3.5) 10^3/uL [place] # (Auto) (0.0-1.0) 10^3/uL Eos # (Auto) (0.0-0.7) 10^3/uL Baso # (Auto) (0.0-0.1) 10^3/uL Absolute Nucleated RBC x10^3/uL Nucleated RBC % /100WBC Sodium 137 (135-145) mmol/L Potassium 5.1 H (3.5-5.0) mmol/L Chloride 108 (101-111) mmol/L Carbon Dioxide 22 (21-32) mmol/L Anion Gap 7.0 (6-13) BUN 40 H (6-20) mg/dL Creatinine 1.6 H (0.4-1.0) mg/dL Estimated GFR (MDRD) 31 L (>89) Glucose 95 (70-100) mg/dL Lactic Acid 0.8 (0.5-2.2) mmol/L Calcium 8.0 L (8.5-10.3) mg/dL Magnesium 2.3 (1.7-2.8) mg/dL Total Bilirubin 0.4 (0.2-1.0) mg/dL AST 35 (10-42) IU/L ALT 25 (10-60) IU/L Alkaline Phosphatase 82 (42-121) IU/L Troponin I (<0.49) ng/mL B-Natriuretic Peptide 353 H (5-100) pg/mL Total Protein 5.1 L (6.7-8.2) g/dL Albumin 2.0 L (3.2-5.5) g/dL Globulin 3.1 (2.1-4.2) g/dL Albumin/Globulin Ratio 0.6 L (1.0-2.2) 09/29/18 09/29/18 09/28/18 Range/Units 04:52 02:33 20:20 WBC 12.1 H (4.8-10.8) x10^3/uL RBC 3.38 L (4.20-5.40) 10^6/uL Hgb 9.5 L (12.0-16.0) g/dL Hct 30.8 L (37.0-47.0) % MCV 91.1 (81.0-99.0) fL MCH 28.1 (27.0-31.0) pg MCHC 30.8 L (32.0-36.0) g/dL RDW 18.3 H (12.0-15.0) % Plt Count 246 (130-450) 10^3/uL MPV 9.8 (7.9-10.8) fL Neut # (Auto) 10.1 H (1.5-6.6) 10^3/uL Lymph # (Auto) 0.9 L (1.5-3.5) 10^3/uL [place] # (Auto) 1.1 H (0.0-1.0) 10^3/uL Eos # (Auto) 0.1 (0.0-0.7) 10^3/uL Baso # (Auto) 0.0 (0.0-0.1) 10^3/uL Absolute Nucleated RBC 0.00 x10^3/uL Nucleated RBC % 0.0 /100WBC Sodium (135-145) mmol/L Potassium (3.5-5.0) mmol/L Chloride (101-111) mmol/L Carbon Dioxide (21-32) mmol/L Anion Gap (6-13) BUN (6-20) mg/dL Creatinine (0.4-1.0) mg/dL Estimated GFR (MDRD) (>89) Glucose (70-100) mg/dL Lactic Acid (0.5-2.2) mmol/L Calcium (8.5-10.3) mg/dL Magnesium (1.7-2.8) mg/dL Total Bilirubin (0.2-1.0) mg/dL AST (10-42) IU/L ALT (10-60) IU/L Alkaline Phosphatase (42-121) IU/L Troponin I 0.14 0.16 (<0.49) ng/mL B-Natriuretic Peptide (5-100) pg/mL Total Protein (6.7-8.2) g/dL Albumin (3.2-5.5) g/dL Globulin (2.1-4.2) g/dL Albumin/Globulin Ratio (1.0-2.2) ABX Reporting Has patient been on IV antibiotics over the past 48 hours?: Yes Sepsis Event Note (H) - Evaluation Current Stage of Sepsis: Ruled out Assessment/Plan - Problem List (1) Pneumonia Impression: (1) Bilateral pneumonia: Preliminary results show bilateral PNA, got Rocephin in the ED. Pt's WBC is reduced to 12. continue with unasyn as suspect aspiration with evidence of choking while drinking milk, add Azith covering for atypical COPD with Hypoxia: hx of Tobacco dependence from age [age]. No home oxygen use. Continue oxygen as needed, respiratory cares, nebulizers and avoid steroids in the setting of the elevated troponin. renal insufficience: Unknown baseline creatinine. hold IVF due to pulmonary effusion, SOB Atrial fibrillation: Hx, pt is on 81 mg Aspirin, pt is age 88, with Obese, and high risk of fall and bleeding. Cardizem for rate control meds on preliminary med list. Elevated troponin: Troponin serial are stable. EKG is without acute elevated ST Patient denies chest pain, denies cardiac interventions and pt is a DNR. Morbid obesity: Life long hx. will continue support, check A1C, consult for weight loss Moderate dementia: Unknown baseline. Lives independently with her , continue support pt. Qualifiers: Pneumonia type: due to unspecified organism Laterality: bilateral Lung location: lower lobe of lung Qualified Code(s): J18.1 - Lobar pneumonia, unspecified organism
[2018-09-29 15:29] LABS: BILIRUBIN,URINE NEGATIVE (NEGATIVE); GLUCOSE, URINE (UA) NEGATIVE (NEGATIVE); UROBILINOGEN,URINE 1 (NORMAL) E.U./dL (NORMAL)
[2018-09-29 15:40] LABS: CLARITY,URINE BLOODY (CLEAR)
[2018-09-29 15:41] LABS: BACTERIA,URINE None Seen /HPF (None Seen); RBC,URINE TNTC /HPF (0-5); SQUAMOUS EPITHELIAL CELL,UR NONE SEEN (<= Few)
--- NOTE | 2018-09-29 16:03 | Ultrasound Report ---
Reason: hemturia Procedure Date: 09/29/2018 Accession Number: [id number] / [id number] Procedure: US - Retroperitoneal CPT Code: FULL RESULT: EXAM: RENAL ULTRASOUND. EXAM DATE: 09/29/2018 03:38 PM. CLINICAL HISTORY: Hematuria. COMPARISON: None. TECHNIQUE: Real-time scanning was performed with static images obtained. FINDINGS: Note: Exam is extensively limited by large body habitus. Right Kidney: 11.3 x 4.5 x 5.4 cm. Evaluation of cortical echotexture and fine detail is limited. Kidney is grossly normal in size and contour. No appreciable hydronephrosis. Left Kidney: 10.2 x 5.3 x 6.3 cm. Poorly visualized. Provided measurements are approximate. No appreciable abnormality of renal contour or hydronephrosis. Bladder: Decompressed with Monreal catheter. Other: 5 x 4 x 4 cm hypoechoic right liver lesion incompletely evaluated. Due to technical limitations further characterization is difficult; there is enhanced through transmission suggesting liver cyst. IMPRESSION: 1. Technically limited exam. No appreciable contour abnormalities or hydronephrosis. 2. 5 cm hypoechoic right liver lesion possibly cyst. Consider a CT scan for definitive evaluation. [facility]
[2018-09-29 19:03] LABS: HGB - HEMOGLOBIN 10.1 g/dL (12.0-16.0)
[2018-09-29] MEDS: ATORVASTATIN 40 MG TABLET PO SCH (20:08)
[2018-09-29] MEDS ORDERED: NON FORMULARY MED (Atorvastatin Calcium [Atorvastatin Calcium] 20 MG) PO SCH (21:00)
[2018-09-29] MEDS: KETOROLAC 15 MG/ML VIAL IVP PRN (22:29)
[2018-09-30 05:39] LABS: BASOPHILS % (AUTO) 0.3 %; EOSINOPHILS % (AUTO) 0.1 %; HGB - HEMOGLOBIN 9.8 g/dL (12.0-16.0); LYMPHOCYTES # (AUTO) 0.9 10^3/uL (1.5-3.5); LYMPHOCYTES % (AUTO) 6.7 %; MEAN CORPUSCULAR HEMOGLOBIN 28.5 pg (27.0-31.0); MEAN CORPUSCULAR HGB CONC 31.9 g/dL (32.0-36.0); MEAN CORPUSCULAR VOLUME 89.4 fL (81.0-99.0); MEAN PLATELET VOLUME 9.6 fL (7.9-10.8); MONOCYTES # (AUTO) 1.2 10^3/uL (0.0-1.0); MONOCYTES % (AUTO) 8.7 %; NEUTROPHILS # (AUTO) 11.6 10^3/uL (1.5-6.6); NEUTROPHILS % (AUTO) 84.2 %; PLT - PLATELET COUNT 280 10^3/uL (130-450); RED BLOOD COUNT 3.45 10^6/uL (4.20-5.40); RED CELL DISTRIBUTION WIDTH 18.3 % (12.0-15.0); WHITE BLOOD COUNT 13.8 x10^3/uL (4.8-10.8)
[2018-09-30 05:51] LABS: ALBUMIN 2.2 g/dL (3.2-5.5); ALBUMIN/GLOBULIN RATIO 0.6 (1.0-2.2); BILIRUBIN,TOTAL 0.6 mg/dL (0.2-1.0); CALCIUM 8.2 mg/dL (8.5-10.3); CREATININE 1.3 mg/dL (0.4-1.0); TOTAL PROTEIN 5.6 g/dL (6.7-8.2)
[2018-09-30] MEDS: GABAPENTIN 300 MG CAPSULE PO SCH ×3 (06:15→20:55)
[2018-09-30] MEDS: PANTOPRAZOLE 40 MG TABLET PO SCH (06:15)
[2018-09-30] MEDS: FUROSEMIDE 20 MG TABLET PO SCH (06:15)
[2018-09-30 06:25] LABS: HB2 TOTAL 9.8 g/dL; HEMOGLOBIN A1C 0.38 g/dL; HEMOGLOBIN A1C % 5.7 % (4.6-6.2)
[2018-09-30] MEDS ORDERED: AZITHROMYCIN INJ 500 MG in SODIUM CHLORIDE 0.9% 250 ML IV SCH ×2 (07:32→11:00)
[2018-09-30 07:43] LABS: ABG PCO2 33 mmHg (34-45); ABG PH 7.38 (7.35-7.45)
[2018-09-30 07:44] LABS: ABG BASE EXCESS -5.2 mmol/L (-2.0-3.0); ABG HCO3 19.2 mmol/L (22.0-26.0); ABG OXYGEN SATURATION 96 % (94-98); ABG PO2 84 mmHg (80-100); ABG TCO2 20.2 MMOL/L (21.0-29.0); ALLEN TEST POSITIVE
[2018-09-30] MEDS: LEVALBUTEROL 1.25 MG/3 ML NEB INH SCH ×3 (07:44→13:03)
[2018-09-30] MEDS: IPRATROPIUM 0.2 MG/ML NEB INH PRN ×2 (07:45→13:03)
[2018-09-30] MEDS ORDERED: FUROSEMIDE 20 MG/2 ML VIAL IVP SCH (08:00)
[2018-09-30] MEDS: MORPHINE 2 MG/ML SYRINGE IVP PRN ×5 (08:11→23:50)
[2018-09-30] MEDS: SODIUM CHLORIDE FLUSH 0.9% 10 ML SYRINGE IVP SCH ×3 (08:11→23:49)
[2018-09-30] MEDS: SODIUM CHLORIDE FLUSH 0.9% 10 ML SYRINGE IVP PRN ×3 (08:11→13:56)
[2018-09-30] MEDS: methylPREDNISolone SUCCINATE 40 MG/ML VIAL IVP SCH ×3 (08:20→20:58)
[2018-09-30] MEDS ORDERED: VANCOMYCIN PER PHARMACY 1 GM in SODIUM CHLORIDE 0.9% 250 ML IV PRN (09:00)
[2018-09-30] MEDS ORDERED: ASPIRIN EC 81 MG TABLET PO SCH (09:00)
[2018-09-30] MEDS ORDERED: FUROSEMIDE 40 MG/4 ML VIAL IVP SCH (09:00)
[2018-09-30] MEDS ORDERED: VANCOMYCIN INJ 2 GM, VANCOMYCIN INJ 500 MG in SODIUM CHLORIDE 0.9% 500 ML IV ONE (10:00)
[2018-09-30] MEDS: CHLORTHALIDONE 25 MG TABLET PO SCH (10:01)
[2018-09-30] MEDS: CHOLECALCIFEROL 1,000 UNIT TABLET PO SCH (10:01)
[2018-09-30] MEDS: CALCIUM CARB (OYSTER SHELL) 500 MG TABLET PO SCH (10:01)
[2018-09-30] MEDS: diltiaZEM CD 240 MG CAPSULE PO SCH (10:01)
[2018-09-30] MEDS: LOSARTAN 50 MG TABLET PO SCH (10:01)
[2018-09-30] MEDS: POLYETHYLENE GLYCOL 3350 17 GM PACKET PO SCH (10:02)
[2018-09-30] MEDS: CEFEPIME 2 GM in SODIUM CHLORIDE 0.9% MINIBAG 100 ML IV SCH ×2 (10:06→20:58)
--- NOTE | 2018-09-30 11:34 | CT Report ---
Reason: SOB, smoker history Procedure Date: 09/30/2018 Accession Number: [id number] / [id number] Procedure: CT - CHEST WO CPT Code: FULL RESULT: EXAM: CT CHEST EXAM DATE: 09/30/2018 10:45 AM. CLINICAL HISTORY: Shortness of breath, smoker history. COMPARISONS: Chest x-rays for 09/29/2018 , 09/28/2018. TECHNIQUE: Routine helical CT imaging was performed through the chest. IV contrast: None. Reconstructions: Coronal and sagittal. In accordance with CT protocol optimization, one or more of the following dose reduction techniques were utilized for this exam: automated exposure control, adjustment of mA and/or KV based on patient size, or use of iterative reconstructive technique. FINDINGS: Lungs/Pleura: There are small bilateral pleural effusions with adjacent passive atelectasis. There is perihilar and bilateral upper lobe patchy airspace opacity greater on the right. There are areas of peripheral subsegmental atelectasis and/or consolidated lung, again greater on the right. No extra-ventilatory air. Mediastinum: There is mediastinal adenopathy in the pretracheal and right paratracheal giselle station primarily, with a dominant 3 cm node. There is also right supraclavicular adenopathy with 2 enlarged lymph nodes noted. Smaller lymph nodes are noted in the subcarinal giselle stations. Possible right hilar adenopathy; determination is difficult due to adjacent areas of consolidated lung. Bones: Degenerative changes commensurate with age. Visualized Abdomen: Liver: There is diffuse hepatic steatosis. There is a 4.5 cm iso to hyperdense mass of the high posterior right lobe of liver a second similar-appearing 4 cm mass is noted of the inferior right lobe of liver reference series 3 image 70. Adrenals: There is a 2.5 cm soft tissue nodule of the left adrenal gland which measures 13 Hounsfield units. Retroperitoneum: Enlarged partially calcified lymph nodes are noted adjacent to the diaphragmatic jakub. Incompletely included probable adenopathy noted of the interaortocaval giselle station and prominent lymph node noted left periaortic measuring 2 cm in short axis. Other: None. IMPRESSION: 1. Subsegmental airspace opacity in the upper and perihilar lungs, greater on the right. Appearance is indeterminate between pneumonia versus atypical edema. 2. Small bilateral pleural effusions with multifocal basilar and peripheral atelectasis. 3. Mediastinal and right supraclavicular adenopathy of undetermined etiology. If patient is manifesting symptoms of infection, this could be reactive adenopathy, but malignant adenopathy is not excluded. 4. Hyperdense masses of the liver as described in a background of hepatic steatosis. When clinically appropriate, dedicated imaging with multiphasic CT or MRI should be considered. If patient is not a candidate for these studies, consider further evaluation with ultrasound. 5. 2.5 cm left adrenal nodule. 6. Retroperitoneal adenopathy, incompletely evaluated. When clinically appropriate recommend dedicated evaluation with CT of the abdomen and pelvis. [facility]
--- NOTE | 2018-09-30 12:36 | XRAY Report ---
Reason: chest pain Procedure Date: 09/28/2018 Accession Number: [id number] / [id number] Procedure: XR - Chest 1 View X-Ray CPT Code: 22872 FULL RESULT: EXAM: CHEST RADIOGRAPHY EXAM DATE: 09/28/2018 02:22 PM. CLINICAL HISTORY: Chest pain. COMPARISON: CHEST 1 VIEW 09/29/2018 11:47 AM. TECHNIQUE: 1 view. FINDINGS: Lungs/Pleura: Lungs are hypoinflated. There is subsegmental perihilar and bibasilar atelectasis. Probable small left effusion. No extraventilatory air. Probable mild interstitial pulmonary edema pattern. Mediastinum: Borderline prominence of the right paratracheal stripe. Other: None. IMPRESSION: 1. Hypoexpansion with perihilar and basilar atelectasis. 2. Mild edema pattern with small effusion on the left. [facility]
[2018-09-30] MEDS ORDERED: VANCOMYCIN 500 MG VIAL ONE (12:37)
[2018-09-30] MEDS ORDERED: VANCOMYCIN 1 GM VIAL ONE (12:37)
[2018-09-30] MEDS: HEPARIN 5,000 UNIT/ML VIAL SUBQ SCH ×2 (12:42→20:58)
[2018-09-30] MEDS: FUROSEMIDE 40 MG/4 ML VIAL IVP SCH (13:55)
--- NOTE | 2018-09-30 16:09 | PROVIDER PROGRESS NOTE ---
Subjective - Prog Note Date Prog Note Date: 09/30/18 - Subjective Pt reports feeling: Worse Subjective: pt is not better today, pt require 15 liter of O2 mask for reach 95% sats. Crackles and wheezing lung are still present. pt denies fever, chill, CP. Current Medications - Current Medications Current Medications: Active Medications Acetaminophen (Tylenol) 650 mg PO Q4HR PRN PRN Reason: Pain 1 to 4 Atorvastatin Calcium (Lipitor) 80 mg PO QPM [facility] Last Admin: 09/29/18 20:08 Dose: 80 mg Calcium Carbonate/Glycine (Oysco-500) 500 mg PO DAILY [facility] Last Admin: 09/30/18 10:01 Dose: 500 mg Chlorthalidone (Chlorthalidone) 25 mg PO DAILY [facility] Last Admin: 09/30/18 10:01 Dose: 25 mg Cholecalciferol (Vitamin D3) 1,000 unit PO DAILY [facility] Last Admin: 09/30/18 10:01 Dose: 1,000 unit Diltiazem HCl (Cardizem Cd) 240 mg PO DAILY [facility] Last Admin: 09/30/18 10:01 Dose: 240 mg Furosemide (Lasix Inj 40 Mg Vial) 40 mg IVP BIDDIURETIC [facility] Last Admin: 09/30/18 13:55 Dose: 40 mg Gabapentin (Neurontin) 300 mg PO TID [facility] Last Admin: 09/30/18 13:55 Dose: 300 mg Heparin Sodium (Porcine) () 5,000 unit SUBQ BID [facility] Last Admin: 09/30/18 12:42 Dose: 5,000 unit Cefepime HCl 2 gm/ Sodium (Chloride) 100 mls @ 200 mls/hr IV BID [facility] Last Infusion: 09/30/18 10:36 Dose: Infused Vancomycin HCl 1 gm/ Sodium (Chloride) 250 mls @ 167 mls/hr IV .PERPHARMACY PRN PRN Reason: PERPHARMACY Vancomycin HCl 1 gm/Vancomycin HCl 500 mg/ Sodium Chloride 500 mls @ 250 mls/hr IV Q24H [facility] Ipratropium [place] (Atrovent) 0.5 mg INH RTQ4H PRN PRN Reason: Shortness of Air/Wheezing Last Admin: 09/30/18 13:03 Dose: 0.5 mg Ketorolac Tromethamine (Toradol Inj (15mg)) 15 mg IVP Q6HR PRN PRN Reason: PAIN Stop: 10/04/18 22:18 Last Admin: 09/29/18 22:29 Dose: 15 mg Levalbuterol HCl (Xopenex) 1.25 mg INH Q4H PRN PRN Reason: Shortness of Air/Wheezing Losartan Potassium (Cozaar) 50 mg PO DAILY [facility] Last Admin: 09/30/18 10:01 Dose: 50 mg Methylprednisolone (Solu-Medrol (40mg Vial)) 40 mg IVP TID [facility] Last Admin: 09/30/18 13:55 Dose: 40 mg Morphine Sulfate (Morphine) 2 mg IVP Q2H PRN PRN Reason: PAIN Last Admin: 09/30/18 16:02 Dose: 2 mg Multi-Ingredient Ointment (Zinc Oxide) 1 applic TOP PRN PRN PRN Reason: Skin Care Pantoprazole Sodium (Protonix) 40 mg PO QDAC [facility] Last Admin: 09/30/18 06:15 Dose: 40 mg Polyethylene Glycol (Miralax) 17 gm PO DAILY [facility] Last Admin: 09/30/18 10:02 Dose: 17 gm Sodium Chloride (Normal Saline Flush 0.9%) 10 ml IVP PRN PRN PRN Reason: NEEDED PER PROVIDER ORDERS Last Admin: 09/30/18 13:56 Dose: 10 ml Sodium Chloride (Normal Saline Flush 0.9%) 10 ml IVP 0100,0900,1700 [facility] Last Admin: 09/30/18 16:03 Dose: 10 ml Temazepam (Restoril) 15 mg PO QPM PRN PRN Reason: Insomnia Aspirin [Adult Low Dose Aspirin EC] 81 mg PO DAILY 09/06/15 Calcium/D3/Mag Ox/Industrial Order Clerk/Gustavo/Zn [Caltrate+D3 Plus Mineral Minis] 1 each PO DAILY 09/06/15 Chlorthalidone 25 mg PO DAILY 09/06/15 Cholecalciferol (Vitamin D3) [Vitamin D] 1,000 unit PO DAILY 09/06/15 Multivitamin-Minerals No.55 [Centrum Flavor Burst Adult Chw] 100 mcg PO DAILY 09/06/15 Acetaminophen [Tylenol Extra Strength] 500 mg PO TID PRN 09/29/18 Atorvastatin Calcium 20 mg PO QPM 09/29/18 Furosemide [Lasix] 20 mg PO DAILY 09/29/18 Gabapentin [Neurontin] 300 mg PO TID 09/29/18 Losartan [Cozaar] 50 mg PO DAILY 09/29/18 Vitamin E (Dl,Tocopheryl Acet) [Vitamin E] 400 unit PO DAILY 09/29/18 diltiaZEM CD [Cardizem Cd] 240 mg PO DAILY 09/29/18 Objective - Vital Signs/Intake & Output Reviewed Vital Signs: Yes Vital Signs: Vital Signs x48h Temp Pulse Pulse Resp BP Pulse Ox 09/30/18 15:22 36.7 C 92 24 126/75 90 L 09/30/18 13:03 80 24 09/30/18 12:27 37 C 91 22 143/92 H 95 Intake & Output: Intake & Output 09/27/18 09/28/18 09/29/18 09/30/18 23:59 23:59 23:59 23:59 Intake Total 1436 3170 790 Output Total 2050 850 2450 Balance -614 2320 -1660 - Objective General Appearance: positive: No acute distress, Alert. negative: Lethargic Eyes Bilateral: positive: Normal inspection, PERRL. negative: No lid inflammation, Conjunctivae nml ENT: positive: ENT inspection nml, Pharynx nml, No signs of dehydration. negative: Purulent nasal drainage, Pharyngeal erythema, Oral lesions Neck: positive: Nml inspection, Thyroid nml, No JVD, Trachea midline. negative: Thyromegaly, Lymphadenopathy (R), Lymphadenopathy (L), Stiff neck, Swelling/bruising, Tracheal deviation Respiratory: positive: Chest non-tender, Wheezes, Rhonchi. negative: No res piratory distress, Breath sounds nml Cardiovascular: positive: Regular rate & rhythm, No murmur, No gallop. negative: Irregularly irregular, Extrasystoles, Tachycardia, Bradycardia, JVD present, Systolic murmur, Diastolic murmur Peripheral Pulses: 2+ Radial (R), 2+ Radial (L), 2+ Dorsalis pedis (R), 2+ Dorsalis pedis (L) Abdomen: positive: Non-tender, No organomegaly, Nml bowel sounds, No distention. negative: Tenderness, Guarding, Rebound Back: positive: Nml inspection. negative: CVA tenderness (R), CVA tenderness (L) Skin: positive: Color nml, No rash, Warm, Dry. negative: Cyanosis, Diaphoresis, Pallor Extremities: positive: Non-tender, Nml appearance. negative: Calf tenderness, Joint swelling, Maria D's sign/cords Neurologic/Psychiatric: positive: Mood/affect nml. negative: Weakness, Sensory loss, Facial droop, Slurred/abnml speech, Depressed mood/affect - Lab Results Fish Bones: 09/30/18 05:15 09/30/18 05:15 Other Labs: Lab Results x24hrs 09/30/18 09/30/18 09/30/18 Range/Units 09:10 07:30 05:15 WBC (4.8-10.8) x10^3/uL RBC (4.20-5.40) 10^6/uL Hgb (12.0-16.0) g/dL Hct (37.0-47.0) % MCV (81.0-99.0) fL MCH (27.0-31.0) pg MCHC (32.0-36.0) g/dL RDW (12.0-15.0) % Plt Count (130-450) 10^3/uL MPV (7.9-10.8) fL Neut # (Auto) (1.5-6.6) 10^3/uL Lymph # (Auto) (1.5-3.5) 10^3/uL [place] # (Auto) (0.0-1.0) 10^3/uL Eos # (Auto) (0.0-0.7) 10^3/uL Baso # (Auto) (0.0-0.1) 10^3/uL Absolute Nucleated RBC x10^3/uL Nucleated RBC % /100WBC D-Dimer (200.0-255.0) ng/mL Bld Gas Analysis Time 0742 Sample Site LEFT RADIAL ABG pH 7.38 (7.35-7.45) ABG pCO2 33 L (34-45) mmHg ABG pO2 84 (80-100) mmHg ABG HCO3 19.2 L (22.0-26.0) mmol/L ABG Total CO2 20.2 L (21.0-29.0) MMOL/L ABG O2 Saturation 96 (94-98) % ABG Base Excess -5.2 L (-2.0-3.0) mmol/L Marcelo Test POSITIVE O2 Delivery Device OXYMASK O2 Liters/Min 15.00 LPM FiO2 100.00 Sodium (135-145) mmol/L Potassium (3.5-5.0) mmol/L Chloride (101-111) mmol/L Carbon Dioxide (21-32) mmol/L Anion Gap (6-13) BUN (6-20) mg/dL Creatinine (0.4-1.0) mg/dL Estimated GFR (MDRD) (>89) Glucose (70-100) mg/dL Glycated Hemoglobin 5.7 (4.6-6.2) % Estim Average Glucose 117 H (70-100) Calcium (8.5-10.3) mg/dL Total Bilirubin (0.2-1.0) mg/dL AST (10-42) IU/L ALT (10-60) IU/L Alkaline Phosphatase (42-121) IU/L B-Natriuretic Peptide (5-100) pg/mL Total Protein (6.7-8.2) g/dL Albumin (3.2-5.5) g/dL Globulin (2.1-4.2) g/dL Albumin/Globulin Ratio (1.0-2.2) Influenza A (Rapid) Negative (Negative) Influenza B (Rapid) Negative (Negative) 09/30/18 09/30/18 09/30/18 Range/Units 05:15 05:15 05:15 WBC 13.8 H (4.8-10.8) x10^3/uL RBC 3.45 L (4.20-5.40) 10^6/uL Hgb 9.8 L (12.0-16.0) g/dL Hct 30.8 L (37.0-47.0) % MCV 89.4 (81.0-99.0) fL MCH 28.5 (27.0-31.0) pg MCHC 31.9 L (32.0-36.0) g/dL RDW 18.3 H (12.0-15.0) % Plt Count 280 (130-450) 10^3/uL MPV 9.6 (7.9-10.8) fL Neut # (Auto) 11.6 H (1.5-6.6) 10^3/uL Lymph # (Auto) 0.9 L (1.5-3.5) 10^3/uL [place] # (Auto) 1.2 H (0.0-1.0) 10^3/uL Eos # (Auto) 0.0 (0.0-0.7) 10^3/uL Baso # (Auto) 0.0 (0.0-0.1) 10^3/uL Absolute Nucleated RBC 0.00 x10^3/uL Nucleated RBC % 0.0 /100WBC D-Dimer (200.0-255.0) ng/mL Bld Gas Analysis Time Sample Site ABG pH (7.35-7.45) ABG pCO2 (34-45) mmHg ABG pO2 (80-100) mmHg ABG HCO3 (22.0-26.0) mmol/L ABG Total CO2 (21.0-29.0) MMOL/L ABG O2 Saturation (94-98) % ABG Base Excess (-2.0-3.0) mmol/L Marcelo Test O2 Delivery Device O2 Liters/Min LPM FiO2 Sodium 140 (135-145) mmol/L Potassium 5.3 H (3.5-5.0) mmol/L Chloride 110 (101-111) mmol/L Carbon Dioxide 23 (21-32) mmol/L Anion Gap 7.0 (6-13) BUN 37 H (6-20) mg/dL Creatinine 1.3 H (0.4-1.0) mg/dL Estimated GFR (MDRD) 39 L (>89) Glucose 100 (70-100) mg/dL Glycated Hemoglobin (4.6-6.2) % Estim Average Glucose (70-100) Calcium 8.2 L (8.5-10.3) mg/dL Total Bilirubin 0.6 (0.2-1.0) mg/dL AST 43 H (10-42) IU/L ALT 31 (10-60) IU/L Alkaline Phosphatase 89 (42-121) IU/L B-Natriuretic Peptide 570 H (5-100) pg/mL Total Protein 5.6 L (6.7-8.2) g/dL Albumin 2.2 L (3.2-5.5) g/dL Globulin 3.4 (2.1-4.2) g/dL Albumin/Globulin Ratio 0.6 L (1.0-2.2) Influenza A (Rapid) (Negative) Influenza B (Rapid) (Negative) 09/29/18 09/29/18 Range/Units 18:57 15:48 WBC (4.8-10.8) x10^3/uL RBC (4.20-5.40) 10^6/uL Hgb 10.1 L (12.0-16.0) g/dL Hct 32.4 L (37.0-47.0) % MCV (81.0-99.0) fL MCH (27.0-31.0) pg MCHC (32.0-36.0) g/dL RDW (12.0-15.0) % Plt Count (130-450) 10^3/uL MPV (7.9-10.8) fL Neut # (Auto) (1.5-6.6) 10^3/uL Lymph # (Auto) (1.5-3.5) 10^3/uL [place] # (Auto) (0.0-1.0) 10^3/uL Eos # (Auto) (0.0-0.7) 10^3/uL Baso # (Auto) (0.0-0.1) 10^3/uL Absolute Nucleated RBC x10^3/uL Nucleated RBC % /100WBC D-Dimer 642.8 H (200.0-255.0) ng/mL Bld Gas Analysis Time Sample Site ABG pH (7.35-7.45) ABG pCO2 (34-45) mmHg ABG pO2 (80-100) mmHg ABG HCO3 (22.0-26.0) mmol/L ABG Total CO2 (21.0-29.0) MMOL/L ABG O2 Saturation (94-98) % ABG Base Excess (-2.0-3.0) mmol/L Marcelo Test O2 Delivery Device O2 Liters/Min LPM FiO2 Sodium (135-145) mmol/L Potassium (3.5-5.0) mmol/L Chloride (101-111) mmol/L Carbon Dioxide (21-32) mmol/L Anion Gap (6-13) BUN (6-20) mg/dL Creatinine (0.4-1.0) mg/dL Estimated GFR (MDRD) (>89) Glucose (70-100) mg/dL Glycated Hemoglobin (4.6-6.2) % Estim Average Glucose (70-100) Calcium (8.5-10.3) mg/dL Total Bilirubin (0.2-1.0) mg/dL AST (10-42) IU/L ALT (10-60) IU/L Alkaline Phosphatase (42-121) IU/L B-Natriuretic Peptide (5-100) pg/mL Total Protein (6.7-8.2) g/dL Albumin (3.2-5.5) g/dL Globulin (2.1-4.2) g/dL Albumin/Globulin Ratio (1.0-2.2) Influenza A (Rapid) (Negative) Influenza B (Rapid) (Negative) ABX Reporting Has patient been on IV antibiotics over the past 48 hours?: Yes Sepsis Event Note (H) - Evaluation Current Stage of Sepsis: Ruled out Assessment/Plan - Problem List (1) Pneumonia Impression: (1) Bilateral pneumonia: 4/3 pt require more O2 supplement, lung is also not better, WBC is going up order CT of chest, followup change antibiotics to cefepime and add vancomycin continue breath treatment continue tele and vital monitor Preliminary results show bilateral PNA, got Rocephin in the ED. Pt's WBC is reduced to 12. continue with unasyn as suspect aspiration with evidence of choking while drinking milk, add Azith covering for atypical (2)COPD with Hypoxia: 4/3 worsen, require 15 oxygen. pt still represent wheezing order ABGs, result reveals slight lower O2 pressure only continue breath treatment add solu-medro continue O2 supplement add Morphine PRN hx of Tobacco dependence from age [age]. No home oxygen use. Continue oxygen as needed, respiratory cares, nebulizers and avoid steroids in the setting of the elevated troponin. (3)renal insufficience: 09/24 slight improved. continue lab monitor Unknown baseline creatinine. hold IVF due to pulmonary effusion, SOB (4)Atrial fibrillation: stable, continue cardizem Hx, pt is on 81 mg Aspirin, pt is age 88, with Obese, and high risk of fall and bleeding. Cardizem for rate control meds on preliminary med list. (5)Elevated troponin: stable, pt denies chest pain, without acute ST change Troponin serial are stable. EKG is without acute elevated ST Patient denies chest pain, denies cardiac interventions and pt is a DNR. (6)Morbid obesity: Life long hx. will continue support, check A1C, consult for weight loss (7)Moderate dementia: Unknown baseline. Lives independently with her , continue support pt. (8) diastolic CHF pt ECHO reveals EF>75%, but with RVSP 51 mmHG, and in pulmonary edema, and elevated BNP Lasix 40mg bid, hold on Spironolactone(Potassium is high today) and coreg Qualifiers: Pneumonia type: due to unspecified organism Laterality: bilateral Lung location: lower lobe of lung Qualified Code(s): J18.1 - Lobar pneumonia, unspecified organism
[2018-09-30] MEDS: ATORVASTATIN 40 MG TABLET PO SCH (20:55)
[2018-09-30] MEDS: CARVEDILOL 3.125 MG TABLET PO SCH (20:55)
[2018-09-30] MEDS: KETOROLAC 15 MG/ML VIAL IVP PRN (23:49)
[2018-10-01] MEDS: IPRATROPIUM 0.2 MG/ML NEB INH PRN ×3 (04:18→14:28)
[2018-10-01] MEDS: MORPHINE 2 MG/ML SYRINGE IVP PRN ×3 (04:33→21:35)
[2018-10-01] MEDS: SODIUM CHLORIDE FLUSH 0.9% 10 ML SYRINGE IVP PRN ×5 (04:34→22:43)
[2018-10-01 05:54] LABS: HGB - HEMOGLOBIN 10.3 g/dL (12.0-16.0); LYMPHOCYTES # (AUTO) 0.6 10^3/uL (1.5-3.5); LYMPHOCYTES % (AUTO) 3.6 %; MEAN CORPUSCULAR HGB CONC 31.5 g/dL (32.0-36.0); MEAN PLATELET VOLUME 10.2 fL (7.9-10.8); MONOCYTES # (AUTO) 0.5 10^3/uL (0.0-1.0); NEUTROPHILS # (AUTO) 16.5 10^3/uL (1.5-6.6); NEUTROPHILS % (AUTO) 93.4 %; PLT - PLATELET COUNT 296 10^3/uL (130-450); RED BLOOD COUNT 3.68 10^6/uL (4.20-5.40); RED CELL DISTRIBUTION WIDTH 18.3 % (12.0-15.0); WHITE BLOOD COUNT 17.7 x10^3/uL (4.8-10.8)
[2018-10-01] MEDS: methylPREDNISolone SUCCINATE 40 MG/ML VIAL IVP SCH ×3 (05:57→22:41)
[2018-10-01] MEDS: FUROSEMIDE 40 MG/4 ML VIAL IVP SCH ×2 (05:59→14:07)
[2018-10-01 06:11] LABS: ALBUMIN 2.3 g/dL (3.2-5.5); ALBUMIN/GLOBULIN RATIO 0.6 (1.0-2.2); BILIRUBIN,TOTAL 0.6 mg/dL (0.2-1.0); CALCIUM 8.4 mg/dL (8.5-10.3); CREATININE 1.2 mg/dL (0.4-1.0); MAGNESIUM 2.6 mg/dL (1.7-2.8)
[2018-10-01] MEDS: PANTOPRAZOLE 40 MG TABLET PO SCH (06:13)
[2018-10-01] MEDS: GABAPENTIN 300 MG CAPSULE PO SCH ×2 (06:15→16:09)
[2018-10-01 08:29] LABS: ABG PH 7.37 (7.35-7.45)
[2018-10-01 08:30] LABS: ABG BASE EXCESS -4.7 mmol/L (-2.0-3.0); ABG OXYGEN SATURATION 89 % (94-98); ABG PCO2 36 mmHg (34-45); ABG PO2 57 mmHg (80-100); ABG TCO2 21.1 MMOL/L (21.0-29.0)
[2018-10-01 08:31] LABS: ALLEN TEST POSITIVE
[2018-10-01] MEDS ORDERED: IOVERSOL 320 100 ML VIAL IVP ONE ×2 (08:51→15:59)
[2018-10-01] MEDS: CEFEPIME 2 GM in SODIUM CHLORIDE 0.9% MINIBAG 100 ML IV SCH (09:30)
[2018-10-01] MEDS: SODIUM CHLORIDE FLUSH 0.9% 10 ML SYRINGE IVP SCH ×2 (09:37→17:36)
[2018-10-01] MEDS: POLYETHYLENE GLYCOL 3350 17 GM PACKET PO SCH (09:39)
[2018-10-01] MEDS: SENNA 8.6 MG TABLET PO SCH (09:52)
[2018-10-01] MEDS: CALCIUM CARB (OYSTER SHELL) 500 MG TABLET PO SCH (09:53)
[2018-10-01] MEDS: CHOLECALCIFEROL 1,000 UNIT TABLET PO SCH (09:53)
[2018-10-01] MEDS: LOSARTAN 50 MG TABLET PO SCH (09:53)
[2018-10-01] MEDS: HEPARIN 5,000 UNIT/ML VIAL SUBQ SCH ×2 (09:53→21:16)
[2018-10-01] MEDS: DOCUSATE SODIUM 250 MG CAPSULE PO SCH (09:53)
[2018-10-01] MEDS: CHLORTHALIDONE 25 MG TABLET PO SCH (09:53)
[2018-10-01] MEDS ORDERED: AZITHROMYCIN INJ 500 MG in SODIUM CHLORIDE 0.9% 250 ML IV SCH (10:00)
--- NOTE | 2018-10-01 10:10 | MISCELLANEOUS PROVIDER NOTE ---
Miscellaneous Provider Note - - Note: Subjective: Patient was seen at bedsideMedical floor transferred from due to acute hypoxemic respiratory failure as it pertains to her worsening bilateral pneumonia seen on CT chest showing airspace opacities right versus left with small bilateral pleural effusions. Patient is complaining of worsening shortness of breath with productive cough. Patient is using increased work of breath and denies chest pain fevers chills nausea vomiting GI or symptoms. Objective: Vital signs hemodynamically stable. Afebrile. Heart rate is 76 bpm. Variable can go up to 100 bpm in atrial fibrillation. Blood pressure 147/63. RR 24. 92% O2 saturation on 15 L oxygen. Patient was subsequently placed on BiPAP with initial settings and was intermittently cycled with high flow oxygen, Improvement to ABGs were seen. General: Patient is acutely ill-appearing morbidly obese speaking in short sentences. Pleasant and cooperative. In mild to moderate respiratory distress. Next HEENT: Pupils are equal round react light and accommodation extraocular muscles are bilateral intact. NCAT. Wide-based neck. No buccal lesions. Oropharynx clear. Neck: No JVD no bruits no lymphadenopathy. No thyromegaly. Next CV/lungs: S1-S2 within normal limits irregular irregular. No murmurs gallops clicks or rubs. Decreased breath sounds bibasilarly with expiratory rhonchi and prolonged expiratory phrase to the right versus left with faint rales bibasilarly. Increased work of breath noted with some intercostal retractions. Abdomen: Soft nontender nondistended, positive bowel sounds all quadrants, no hepatosplenomegaly Extremities/skin: RUE edema. Bilateral lower extremity chronic edema with erythematous involvement to the anterior pretibial regions with no necrotic or purulent lesions. 2+ pulses dorsalis pedis bilaterally. Next Neuro: Grossly intact Labs: Reviewed Imaging studies: Reviewed Assessment/plan: (1) Acute hypoxemic respiratory failure sec Worsening bilateral pneumonia with parapneumonic effusion, concerning for possible ARDS. -We will initiate BiPAP right now due to patient not having improvement on Oxymizer or high flow oxygen currently at 35 L. Serial ABGs show PO2 trending from 84.2>57.1>56.7>102.7 (on Bipap @80% fio2) and while on supplemental trial of oxygen (oxymizer or HFO). Continue to follow serial ABGs. We will obtain a CT chest PE protocol. Would address underlying in fectious etiology if identified with deep suctioning and obtaining sputum Gram stain and culture. Patient would also benefit for a bronchoscopy but unfortunately this is not available here at [facility]. Continue with aggressive pulmonary toileting, incentive spirometry as atelectasis is seen on CT chest, Unfortunately no IV contrast was administered to evaluate for pulmonary embolism. Would continue pulmonary toileting, the addition of Pulmicort along with up titration of Solu-Medrol may help process. In addition patient will be placed on Xopenex as patient has underlying atrial fibrillation. Would query on bronchospasms and/or mucous plugging as possible etiology as well as patient was previously on diltiazem and Coreg. We will titrate to achieve a tidal volume 5-7 mL/kg. RR less than 25 with decreased work of breath on clinical examination. PIP less than 20 cm of water.Titrate FiO2 to pulse ox of above 90%. Increase EPAP to eventually wean FiO2. Adjust rise time/triggering sensitivity to Titrate to patient comfort. (2) Worsening Bilateral pneumonia With associated bilateral moderate pleural effusion. With possible underlying aspiration pneumonia -Due to DNR status will initiate noninvasive positive pressure ventilation with BiPAP, Due to improvement of PO2 would provide intermittent use and have a high flow oxygen to start with maintenance pulse ox above 90%. Patient conveys that she does have food and swallowing issues with coughing. Will obtain an official swallow evaluation with possible barium study to evaluate for perhaps modifying her diet to a dysphagia and considering changing food consistencies. Meanwhile will switch IV antibiotics to IV Merrem to cover for anaerobes as well as MSSA. Patient previously on cefepime and vancomycin and was previously on Unasyn on admission. We will obtain MRSA to nares, lactic acid, sputum Gram stain and culture. Continue with medical management as per above. CTA shows no evidence of pulmonary embolism to indicate a flash pulmonary edema however moderate bilateral pleural effusion may be infectious versus malignant. Component of possible diastolic CHF dysfunction CHF may be present however less likely. Patient likely would benefit from interventional radiology thoracentesis which is not offered here at [facility]. Will uptitrate Lasix to 60 mg IV twice daily. (3) Elevated d-dimer. -CT a shows no pulmonary embolism. Patient had a CT without contrast showing bilateral airspace opacities right more than left although VQ mismatching and alveolar edema may be present in early ARDS. Patient does have right upper extremity edema with No evidence of DVT on ultrasound. (4) Acute on Chronic COPD exacerbation. -Medical management as per above. Patient does not appear to be CO2 retaining on serial ABGs and the adeno morphine to inhibit respiratory drive can be of concern. Will place on low-dose morphine. Would continue with Solu-Medrol up titrated now to 60 mg IV 3 times daily, pulmonary toileting, incentive spirometer, addition Singulair 10 mg p.o. daily, Xopenex and Pulmicort. Non-02 dependent. hx of Tobacco dependence from age [age]. No home oxygen use. Would continue on supplemental oxygenation with Oxymizer at 15 L currently at 9 L. (5) Moderate pulmonary hypertension with elevated right ventricular pressures seen on echocardiogram with hyperdynamic function. Currently due to patient's pulmonary edema would indicate afterload reduction however in the setting of the acuity would hold off on coreg and dilatiazem for now as this may exacerbate problem. Would restart once patient is more stable respiratory arcos. In addition may benefit from revatio as outpatient, and perhaps sleep study if not had one in past. (6) Acute renal insufficiency with unknown baseline -Continue to provide IV fluid resuscitation to avoid nephrotoxic agents she appears to be somewhat fluid overloaded. Currently receiving Lasix at 40 mg IV twice daily. Continue to follow renal function correct underlying electrolyte disturbances. Check a serum uric acid level. Losartan held. (7) Mediastinal adenopathy with largest measuring to 3 cm, Along with retroperitoneal lymphadenopathy -CT chest with Contrast shows multiple low left pelvis soft tissue densities along with enlarged retroperitoneal lymph nodes concerning for metastatic primary colon CA versus metastatic satellite implants versus endometrial carc inoma. -Due to the fact that this is high chance of malignancy patient's DNR status would prohibit such invasive or aggressive interventions in terms of biopsies and/or if it is cancer to pursue chemoradiation. (8) Suspected Malignant liver masses With metastatic process -CT abdomen pelvis with IV contrast showed a 3.6 x 2.6 cm rounded hypodense mass with segment 7 of the liver. There is a 3.7 x 2.1 cm hypodense mass with segment 6 of the liver. There are enlarged retroperitoneal lymph nodes with associated 4.5 x 4.3 cm heterogeneous soft tissue density at the left margin of the rectum. In additionThere is a heterogeneous density of the central uterus with endometrial air. Differential diagnosis include primary colon cancer with adjacent satellite lesions versus endometrial CA. (9) Chronic Atrial fibrillation: -Does not appear to be in RVR however has variable rates up into the 100s. ChadsVasc is approx 5 pts With a 7.2% stroke risk per year. Currently would not be a candidate for anticoagulation due to age and the risk benefit ratio as increased GI bleed as well as intracranial hemorrhaging would be of concern. Would at the present time placed her on IV Lopressor as needed for heart rate above 120 RVR. In addition may start digoxin, However concern for digoxin toxicity in the setting of acute renal insufficiency. (10) Elevated troponin: -Likely secondary to demand ischemia. Patient denies chest pain however with an elevated troponin in the past. Serial troponins with peak 0.16>0.12 (last). EKG without acute ST changes, Other than atrial fibrillation and left anterior fascicular block with nonspecific T wave abnormalities dated 09/28 along with a 2D echocardiogram showing hyperdynamic function >75% with no motion wall abnormalities. (11) Morbid obesity: -Chronic with a BMI of 43.9. Suggestive of compressive atelectasis as seen on CT chest and possible underlying obstructive sleep apnea which may be contributing to patient's hypoxemia. (12) Moderate dementia: Unknown baseline. Lives independently with her , continue support pt. (13) Chronic Diastolic CHF pt ECHO reveals EF>75%, but with RVSP 51 mmHG, and in pulmonary edema, and elevated BNP Lasix to be up titrated to 60 mg IV twice daily, hold on Spironolactone(Potassium is high today). Would hold off on Coreg and diltiazem as this would perhaps be contributing to patient's bronchospasm and worsening bilateral pulmonary edema. Serial BNP's to follow. Will eventually need afterload reduction once respiratory failure is addressed. Qualifiers: Pneumonia type: due to unspecified organism Laterality: bilateral Lung location: lower lobe of lung Qualified Code(s): J18.1 - Lobar pneumonia, unspecified organism (14) PVD with Chronic bilateral lower extremity edema with erythematous anterior tibial regions. -Patient seems MAC outpatient and this has improved -Will start Pletal, already on statin and ASA. Correct modifiable risk factors of underlying hypertension hyperlipidemia as well as decreasing in weight and offloading of lower extremities. Advance care education counseling provided with a pulsed to reiterate that patient is not a candidate for cardiac catheterization or intubations and has discussed medical conditions with symptom management and trajectory of illness inSync with patient's believes and values. CODE STATUS: DNR. The had brought an old POLST dated 2016 which shows DNR with comfort care measures will revisit and update existing POLST. Total critical care time 35 minutes
[2018-10-01 10:24] LABS: ABG HCO3 20.3 mmol/L (22.0-26.0); ABG PCO2 35 mmHg (34-45); ABG PH 7.38 (7.35-7.45); ABG PO2 57 mmHg (80-100)
[2018-10-01 10:25] LABS: ABG BASE EXCESS -4.3 mmol/L (-2.0-3.0); ABG OXYGEN SATURATION 89 % (94-98); ABG TCO2 21.4 MMOL/L (21.0-29.0); ALLEN TEST POSITIVE
[2018-10-01] MEDS: LEVALBUTEROL 1.25 MG/3 ML NEB INH SCH ×3 (11:09→19:11)
[2018-10-01] MEDS: BUDESONIDE 0.5 MG/2 ML NEB INH SCH ×2 (11:09→19:11)
[2018-10-01] MEDS: CARVEDILOL 3.125 MG TABLET PO SCH (11:23)
[2018-10-01] MEDS: diltiaZEM CD 240 MG CAPSULE PO SCH (11:23)
[2018-10-01] MEDS: MEROPENEM 1 GM in SODIUM CHLORIDE 0.9% MINIBAG 100 ML IV SCH ×2 (11:30→18:30)
[2018-10-01] MEDS ORDERED: SODIUM CHLORIDE FLUSH 0.9% 10 ML SYRINGE ONE (11:54)
[2018-10-01] MEDS ORDERED: VANCOMYCIN INJ 1 GM, VANCOMYCIN INJ 500 MG in SODIUM CHLORIDE 0.9% 500 ML IV SCH (12:00)
[2018-10-01] MEDS: LORazepam 2 MG/ML VIAL IVP PRN ×3 (12:25→19:38)
[2018-10-01 12:37] LABS: ABG PCO2 34 mmHg (34-45); ABG PH 7.37 (7.35-7.45); ABG PO2 67 mmHg (80-100); ABG TCO2 20.1 MMOL/L (21.0-29.0)
[2018-10-01 12:38] LABS: ABG BASE EXCESS -5.5 mmol/L (-2.0-3.0); ABG OXYGEN SATURATION 92 % (94-98); ALLEN TEST POSITIVE
--- NOTE | 2018-10-01 13:00 | Ultrasound Report ---
Reason: Right upper extremity EDEMA Procedure Date: 10/01/2018 Accession Number: [id number] / [id number] Procedure: US - Duplex Ext Veins Right CPT Code: FULL RESULT: EXAM: RIGHT UPPER EXTREMITY VENOUS ULTRASOUND EXAM DATE: 10/01/2018 11:52 AM. CLINICAL HISTORY: Right upper extremity edema. COMPARISON: None. TECHNIQUE: Real-time sonographic vascular imaging was performed by the washerette machine operator through the upper extremity utilizing both color-flow and Doppler spectral analysis. Multiple territory service representative static images were saved for review. FINDINGS: Internal Jugular Vein (IJV): Normal. Subclavian Vein (SCV): Normal. Axillary Vein : Normal. Cephalic Vein (superficial vein): Normal. Basilic Vein (superficial vein): Normal. Brachial Vein: Normal. Contralateral Side: Subclavian Vein: Normal. Other: None. IMPRESSION: No evidence for deep vein thrombosis. RADIA
[2018-10-01 16:04] LABS: ABG HCO3 21.7 mmol/L (22.0-26.0); ABG PCO2 41 mmHg (34-45); ABG PH 7.34 (7.35-7.45); ABG PO2 103 mmHg (80-100)
[2018-10-01 16:05] LABS: ABG BASE EXCESS -3.8 mmol/L (-2.0-3.0); ABG OXYGEN SATURATION 97 % (94-98); ALLEN TEST POSITIVE
[2018-10-01] MEDS: CILOSTAZOL 100 MG TABLET PO SCH ×2 (16:09→21:16)
--- NOTE | 2018-10-01 16:23 | CT Report ---
Reason: liver mass Procedure Date: 10/01/2018 Accession Number: [id number] / [id number] Procedure: CT - Abdomen/Pelvis W CPT Code: FULL RESULT: EXAM: CT ABDOMEN AND PELVIS EXAM DATE: 10/01/2018 03:52 PM. CLINICAL HISTORY: Liver mass. COMPARISONS: CHEST W/O 09/30/2018 10:29 AM. TECHNIQUE: Routine helical CT imaging was performed through the abdomen and pelvis. IV contrast: ISOVUE 300 100mL. Enteric contrast: No. Reconstructions: Coronal and sagittal. In accordance with CT protocol optimization, one or more of the following dose reduction techniques were utilized for this exam: automated exposure control, adjustment of mA and/or KV based on patient size, or use of iterative reconstructive technique. FINDINGS: Lung Bases: Findings are detailed separately. Liver: There is hepatic steatosis. There is a 3.6 x 2.6 cm rounded hypodense mass within segment 7 of the liver (image 16 series 5). There is a 3.7 x 2.1 cm hypodense mass within segment 6 of the liver (image is 37). Gallbladder/Bile Ducts: Unremarkable. Spleen: Normal. Pancreas: Normal. Adrenal Glands: There is a 2.3 x 1.2 cm left adrenal nodule. Attenuation characteristics on prior noncontrast imaging are suggestive of adenoma. Kidneys: There are renal cysts. There is a small nonobstructing stone within the left kidney. Peritoneal Cavity/Bowel: Stomach and small bowel demonstrate no acute abnormalities. There is a 4.5 x 4.3 cm heterogeneous soft tissue density at the left margin of the rectum (image 83 series 5). There are enlarged retroperitoneal lymph nodes. Index examples include left periaortic 1.5 x 1.5 cm image 35 series 5, aortocaval 2.3 x 1.2 cm image 40, low left periaortic 1.9 x 1.9 cm image 55, and left external iliac 2.5 x 1.6 cm image 80. The appendix is well visualized and normal. Pelvic Organs: There is heterogeneous density of the central uterus. There is air within the central uterus. No significant adnexal abnormalities are seen. There is a 3.5 x 2.0 cm soft tissue density at the left margin of the lower uterine segment (image 83 series 5). A bladder catheter is in place. Vasculature: No aneurysms or other significant abnormality. Bones: No significant abnormality. Other: None. IMPRESSION: 1. There are 2 rounded masses within the liver. These may be metastases. 2. There are enlarged retroperitoneal lymph nodes. These are likely metastatic. 3. There are low left pelvis soft tissue densities, 4.5 x 4.3 cm at the left margin of the rectum, and 2.0 x 3.5 cm at the left margin of the lower uterine segment. Differential considerations include metastatic implants, or primary colon cancer with adjacent satellite lesion. 4. There is heterogeneous density of the central uterus with endometrial air. Differential considerations include endometrial carcinoma or endometritis. 5. Findings within the chest are detailed separately. 6. There is a 2.4 x 1.2 cm left adrenal nodule. Attenuation characteristics on the previous day's noncontrast imaging are suggestive of an adenoma. RADIA
--- NOTE | 2018-10-01 16:37 | CT Report ---
Reason: SOB Procedure Date: 10/01/2018 Accession Number: [id number] / [id number] Procedure: CT - ANGIO CHEST W/WO CPT Code: FULL RESULT: EXAM: CT ANGIOGRAM CHEST EXAM DATE: 10/01/2018 03:52 PM. CLINICAL HISTORY: SOB. COMPARISON: CHEST W/O 09/30/2018 10:29 AM. TECHNIQUE: Routine helical imaging was performed through the chest in the pulmonary arterial phase. IV Contrast: ISOVUE 300 100mL. Reconstructions: Coronal 3-D MIP reconstructions.Sagittal and coronal. In accordance with CT protocol optimization, one or more of the following dose reduction techniques were utilized for this exam: automated exposure control, adjustment of mA and/or KV based on patient size, or use of iterative reconstructive technique. FINDINGS: Pulmonary Arteries: Diagnostic quality: Adequate through the proximal to mid segmental arteries. No evidence for acute or chronic pulmonary emboli. No CT evidence of right heart strain. Lungs/Pleura: Interval increase in peribronchovascular consolidation. There are moderate sized bilateral pleural effusions. There is no evidence of pneumothorax. Mediastinum: There is cardiomegaly. There are enlarged thoracic lymph nodes as detailed on the study from the previous day. Thoracic Aorta: No evidence of aortic dissection. Upper Abdomen: Findings are detailed separately. Other: None. IMPRESSION: 1. Interval increase in bilateral peribronchovascular consolidation. Primary differential considerations include lung edema, diffuse alveolar damage, or possibly pneumonia. 2. There are moderate sized bilateral pleural effusions. 3. There is cardiomegaly. 4. There are enlarged thoracic lymph nodes. 5. No evidence of acute pulmonary embolism through the proximal to mid segmental branch level. 6. There is no evidence of aortic dissection or aneurysm. 7. Findings within the abdomen and pelvis are detailed separately. RADIA
[2018-10-01] MEDS ORDERED: FUROSEMIDE 20 MG/2 ML VIAL IVP ONE (19:30)
[2018-10-01] MEDS: ATORVASTATIN 10 MG TABLET PO SCH (21:15)
[2018-10-01] MEDS: MONTELUKAST 10 MG TABLET PO SCH (21:16)
[2018-10-02] MEDS: LORazepam 2 MG/ML VIAL IVP PRN ×7 (00:53→22:33)
[2018-10-02] MEDS: SODIUM CHLORIDE FLUSH 0.9% 10 ML SYRINGE IVP SCH ×3 (00:53→16:55)
[2018-10-02] MEDS: MEROPENEM 1 GM in SODIUM CHLORIDE 0.9% MINIBAG 100 ML IV SCH ×3 (03:10→18:44)
[2018-10-02] MEDS: MORPHINE 2 MG/ML SYRINGE IVP PRN ×6 (03:31→21:14)
[2018-10-02] MEDS: SODIUM CHLORIDE FLUSH 0.9% 10 ML SYRINGE IVP PRN ×16 (03:31→22:33)
[2018-10-02 05:18] LABS: HGB - HEMOGLOBIN 9.2 g/dL (12.0-16.0); LYMPHOCYTES # (AUTO) 0.5 10^3/uL (1.5-3.5); MEAN CORPUSCULAR HGB CONC 31.2 g/dL (32.0-36.0); MEAN CORPUSCULAR VOLUME 89.7 fL (81.0-99.0); MEAN PLATELET VOLUME 10.1 fL (7.9-10.8); MONOCYTES # (AUTO) 0.8 10^3/uL (0.0-1.0); MONOCYTES % (AUTO) 4.6 %; NEUTROPHILS # (AUTO) 16.5 10^3/uL (1.5-6.6); NEUTROPHILS % (AUTO) 92.4 %; PLT - PLATELET COUNT 269 10^3/uL (130-450); RED BLOOD COUNT 3.29 10^6/uL (4.20-5.40); RED CELL DISTRIBUTION WIDTH 18.7 % (12.0-15.0); WHITE BLOOD COUNT 17.9 x10^3/uL (4.8-10.8)
[2018-10-02 05:20] LABS: ALBUMIN/GLOBULIN RATIO 0.6 (1.0-2.2); BILIRUBIN,TOTAL 0.6 mg/dL (0.2-1.0); CALCIUM 8.4 mg/dL (8.5-10.3); CREATININE 1.3 mg/dL (0.4-1.0); TOTAL PROTEIN 5.5 g/dL (6.7-8.2)
[2018-10-02] MEDS: KETOROLAC 15 MG/ML VIAL IVP PRN ×2 (05:32→11:02)
[2018-10-02] MEDS: BUDESONIDE 0.5 MG/2 ML NEB INH SCH ×2 (06:00→20:16)
[2018-10-02] MEDS: LEVALBUTEROL 1.25 MG/3 ML NEB INH SCH ×4 (06:00→20:16)
[2018-10-02] MEDS: methylPREDNISolone SUCCINATE 40 MG/ML VIAL IVP SCH ×2 (06:09→13:38)
[2018-10-02] MEDS: FUROSEMIDE 100 MG/10 ML VIAL IVP SCH ×2 (06:09→13:43)
[2018-10-02] MEDS: ZINC OXIDE 20% OINT 28.35 GM TUBE TOP PRN ×4 (09:00→18:51)
[2018-10-02] MEDS ORDERED: ALLOPURINOL 100 MG TABLET PO SCH (09:00)
[2018-10-02] MEDS: METOPROLOL 5 MG/5 ML VIAL IVP PRN ×2 (09:58→17:46)
[2018-10-02] MEDS ORDERED: MORPHINE 2 MG/ML SYRINGE IVP SCH (10:00)
[2018-10-02 10:01] LABS: INR 1.3 (0.8-1.2); PT - PROTHROMBIN TIME 14.2 secs (9.9-12.6)
[2018-10-02] MEDS: MORPHINE 2 MG/ML SYRINGE IVP ONE ×2 (10:04→10:20)
[2018-10-02 10:27] LABS: ABG BASE EXCESS -3.1 mmol/L (-2.0-3.0); ABG HCO3 21.4 mmol/L (22.0-26.0); ABG OXYGEN SATURATION 89 % (94-98); ABG PCO2 36 mmHg (34-45); ABG PH 7.39 (7.35-7.45); ABG PO2 58 mmHg (80-100); ABG TCO2 22.5 MMOL/L (21.0-29.0); ALLEN TEST POSITIVE
[2018-10-02] MEDS: IPRATROPIUM 0.2 MG/ML NEB INH PRN ×2 (10:36→20:15)
--- NOTE | 2018-10-02 10:58 | MISCELLANEOUS PROVIDER NOTE ---
Miscellaneous Provider Note - - Note: Subjective: Patient seen at bedside with persistent shortness of breath and has been on BiPAP since yesterday with no intermittent use of high flow oxygen which currently she is not able to tolerate. Patient denies fevers chills nausea vomiting or chest pain. Patient is scheduled for thoracentesis today. Did finally receive thoracentesis at approximately 1500 hrs. No complications were seen. Patient tolerated procedure well. Objective: Vital signs hemodynamically stable.Afebrile heart rate of 95-130 bpm, telemetry showing PSVT>RVR afib, blood pressure 147/67, RR range 23-30, 93% O2 saturation on 70% of FiO2 BiPAP 12/6 settings. General: Patient is acutely ill-appearing morbidly obese, Unable to speak with moderate to severe respiratory distress. HEENT: Pupils are equal round react light and accommodation extraocular muscles are bilateral intact. NCAT. Wide-based neck. No buccal lesions. Oropharynx clear. Neck: No JVD no bruits no lymphadenopathy. No thyromegaly. Next CV/lungs: S1-S2 within normal limits irregular irregular. Increased work of breath with worsening retractions as well as prolonged expiratory rhonchi and little to no airway movement to the right lung base versus left with associated faint rales. Faint wheezing that is scattered mainly to the left upper lung. Abdomen: Soft nontender nondistended, positive bowel sounds all quadrants, no hepatosplenomegaly Extremities/skin: RUE edema. Bilateral lower extremity chronic edema with erythematous involvement to the anterior pretibial regions with no necrotic or purulent lesions. Bilateral bipedal edema with 2+ pulses dorsalis pedis bilaterally. Neuro: Grossly intact Labs: Reviewed Imaging studies: Reviewed Assessment/plan: (1) Acute hypoxemic respiratory failure sec Worsening bilateral pneumonia with parapneumonic effusion, concerning for possible ARDS. -Patient has been on BiPAP as of yesterday and continues to deteriorate. Shortness of breath secondary to bilateral pleural effusions. Serial ABGs show PO2 trending from 84.2>57.1>56.7>102.7>58 (on Bipap @70% fio2). Spoke to family members and they are agreeable with thoracentesis today we will only do one side as not to risk pneumothorax, however if Light's criteria shows empyema will likely need a chest tube versus a pigtail catheter. Patient had a USG right-sided thoracentesis with 750 CC of yellow turbid fluid and planning for a left-sided thoracentesis the following day. Continue to titrate to achieve a tidal volume 5-7 mL/kg. RR less than 25 with decreased work of breath on clinical examination. PIP less than 20 cm of water. Titrate FiO2 to pulse ox of above 90%. Increase EPAP to eventually wean FiO2. Adjust rise time/triggering sensitivity to Titrate to patient comfort. (2) Worsening Bilateral pneumonia With associated bilateral moderate pleural effusion. Status post right-sided thoracentesis with 750 cc of yellow cloudy fluid. -Due to DNR status will initiate noninvasive positive pressure ventilation with BiPAP, Serial ABGs have worsened, with PO2 currently at 58 on FiO2 of 70% BiPAP. We will increase BiPAP to 80% with same EPAP/IPAP settings and respiratory rate. Continue with IV Merrem for now. Lasix Titrated to 40 mg IV twice daily. We will calculate Light's criteria to evaluate for empyema. CTA shows no evidence of pulmonary embolism to indicate a flash pulmonary edema however moderate bilateral pleural effusion may be infectious versus malignant. Component of possible diastolic CHF dysfunction CHF may be present however less likely. Qualifiers: Pneumonia type: due to unspecified organism Laterality: bilateral Lung location: lower lobe of lung Qualified Code(s): J18.1 - Lobar pneumonia, unspecified organism (3) Acute on Chronic COPD exacerbation. -Medical management as per above. Patient does not appear to be CO2 retaining on serial ABGs and the adeno morphine to inhibit respiratory drive can be of concern. Will place on low-dose morphine. Would continue with Solu-Medrol up titrated now to 60 mg IV 3 times daily, pulmonary toileting, incentive spirometer, addition Singulair 10 mg p.o. daily, Xopenex and Pulmicort. Non-02 dependent. hx of Tobacco dependence from age [age]. No home oxygen use. Patient has no e vidence of CO2 or hypercapnia on serial ABGs. We will continue with BiPAP as per above. (4) Moderate pulmonary hypertension with elevated right ventricular pressures seen on echocardiogram with hyperdynamic function. Currently due to patient's pulmonary edema would indicate afterload reduction however in the setting of the acuity would hold off on coreg and dilatiazem for now as this may exacerbate problem. Would restart once patient is more stable respiratory arcos. In addition may benefit from revatio as outpatient, and perhaps sleep study if not had one in past. (5) Acute renal insufficiency with unknown baseline -Patient currently on Lasix 60 mg IV twice daily, avoid nephrotoxic agents she appears to be somewhat fluid overloaded. However BNP levels have gone down. Continue to follow renal function correct underlying electrolyte disturbances. Patient has hyperuricemia and being treated with allopurinol now at 100 mg p.o. daily. Losartan being held as well as chlorthalidone. (6) Mediastinal adenopathy with largest measuring to 3 cm, Along with retroperitoneal lymphadenopathy -CT chest with Contrast shows multiple low left pelvis soft tissue densities along with enlarged retroperitoneal lymph nodes concerning for metastatic primary colon CA versus metastatic satellite implants versus endometrial carcinoma. -Due to the fact that this is high chance of malignancy patient's DNR status would prohibit such invasive or aggressive interventions in terms of biopsies and/or if it is cancer to pursue chemoradiation. (7) Suspected Malignant liver masses With metastatic process -CT abdomen pelvis with IV contrast showed a 3.6 x 2.6 cm rounded hypodense mass with segment 7 of the liver. There is a 3.7 x 2.1 cm hypodense mass with segment 6 of the liver. There are enlarged retroperitoneal lymph nodes with associated 4.5 x 4.3 cm heterogeneous soft tissue density at the left margin of the rectum. In additionThere is a heterogeneous density of the central uterus with endometrial air. Differential diagnosis include primary colon cancer with adjacent satellite lesions versus endometrial CA. (8) RVR afib with SVT: -Patient has a history of chronic atrial fibrillation. Patient showing variable SVT and RVR afib not repsonding to IV lopressor 5mg IV x1. We will start a diltiazem drip. Patient's current pulse is DNR with limited interventions such as IV medications. Digoxin load was given at 50% with a 25% q 6hrs x 2 doses, Would then start at 250 mcg p.o. daily in a.m., Digoxin a.m. level ChadsVasc is approx 5 pts With a 7.2% stroke risk per year. Currently would not be a candidate for anticoagulation due to age and the risk benefit ratio as increased GI bleed as well as intracranial hemorrhaging would be of concern. In addition may start digoxin, However concern for digoxin toxicity in the setting of acute renal insufficiency. (9) Chronic Diastolic CHF pt ECHO reveals EF>75%, but with RVSP 51 mmHG, and in pulmonary edema, and elevated BNP Currently on Lasix 60 mg IV twice daily, Aldactone being held. Diltiazem and Coreg being held. Serial BNP's to follow. Will eventually need afterload reduction once respiratory failure is addressed. (10) PVD with Chronic bilateral lower extremity edema with erythematous anterior tibial regions. -Patient seems MAC outpatient and this has improved - Will hold Pletal for now as INR will need to be less than 1.5 for a repeat thoracentesis. Continue on statin. Correct modifiable risk factors of underlying hypertension hyperlipidemia as well as decreasing in weight and offloading of lower extremities. Advance care education counseling provided with a pulsed to reiterate that patient is not a candidate for cardiac catheterization or intubations and has discussed medical conditions with symptom management and trajectory of illness inSync with patient's believes and values. CODE STATUS: DNR. The had brought an old POLST dated 2016 which shows DNR with comfort care measures will revisit and update existing POLST. Total critical care time 35 minutes
[2018-10-02] MEDS ORDERED: diltiaZEM INJ 125 MG in DEXTROSE 5% 100 ML IV SCH ×2 (11:00→21:00)
[2018-10-02] MEDS ORDERED: diltiaZEM INJ 5 MG/ML VIAL IVP ONE (11:01)
[2018-10-02] MEDS: CALCIUM CARB (OYSTER SHELL) 500 MG TABLET PO SCH (11:33)
[2018-10-02] MEDS: CILOSTAZOL 100 MG TABLET PO SCH (11:33)
[2018-10-02] MEDS: CHOLECALCIFEROL 1,000 UNIT TABLET PO SCH (11:33)
[2018-10-02] MEDS: DOCUSATE SODIUM 250 MG CAPSULE PO SCH (11:33)
[2018-10-02] MEDS: SENNA 8.6 MG TABLET PO SCH (11:34)
[2018-10-02] MEDS: POLYETHYLENE GLYCOL 3350 17 GM PACKET PO SCH (11:34)
[2018-10-02] MEDS: HEPARIN 5,000 UNIT/ML VIAL SUBQ SCH (11:34)
[2018-10-02] MEDS ORDERED: LIDOCAINE-MPF 1% 5 ML VIAL ONE (12:22)
[2018-10-02 12:30] LABS: ABG BASE EXCESS -4.1 mmol/L (-2.0-3.0); ABG HCO3 20.5 mmol/L (22.0-26.0); ABG OXYGEN SATURATION 93 % (94-98); ABG PCO2 36 mmHg (34-45); ABG PH 7.38 (7.35-7.45); ABG PO2 72 mmHg (80-100); ABG TCO2 21.6 MMOL/L (21.0-29.0); ALLEN TEST POSITIVE
[2018-10-02] MEDS ORDERED: BUFFERED LIDOCAINE 10 ML SYRINGE ONE (12:55)
[2018-10-02] MEDS ORDERED: DIGOXIN 500 MCG/2 ML AMP IVP SCH ×2 (13:00→18:00)
[2018-10-02] MEDS ORDERED: DIGOXIN 500 MCG/2 ML AMP IVP ONE (13:12)
--- NOTE | 2018-10-02 15:17 | Ultrasound Report ---
Reason: Moderate Bilateral pleural effusion Procedure Date: 10/02/2018 Accession Number: [id number] / [id number] Procedure: US - Thoracentesis Puncture CPT Code: FULL RESULT: EXAM: ULTRASOUND-GUIDED THORACENTESIS EXAM DATE: 10/02/2018 02:16 PM. CLINICAL HISTORY: Moderate Bilateral pleural effusion. COMPARISON: Chest CT 10/01/2018. TECHNIQUE: Real-time and static images were obtained. Informed consent was obtained from the patient's family who were in attendance during performance of the procedure. Exam was performed at bedside. Patient was positioned semiupright and partial left lateral decubitus. Entry site over the right low chest was imaged with ultrasound and marked over the skin. Skin site was prepped and draped in the usual sterile fashion. Skin and deeper tissues were anesthetized with 8 cc of 1% lidocaine. An 18-gauge Eurocept catheter was advanced onto a posterior rib. Needle was advanced carefully over the superior aspect of the rib into the pleural space. Approximately 750 cc of mildly turbid yellowish fluid were obtained and sent for analysis. There is no evidence of immediate complication and patient tolerated the procedure well. Postprocedural chest x-ray showed no evidence of pneumothorax. FINDINGS IMPRESSION: Successful ultrasound-guided right sided thoracentesis with return of 750 cc of fluid. No evidence of postprocedural complication. RAD[facility]
[2018-10-02 15:33] LABS: BF COLOR YELLOW; BF SOURCE PLEURAL; CC,BF RBC < 1000 /mm^3
--- NOTE | 2018-10-02 15:34 | XRAY Report ---
Reason: Post thoracentisis pucture Procedure Date: 10/02/2018 Accession Number: [id number] / [id number] Procedure: XR - Chest 1 View X-Ray CPT Code: 83006 FULL RESULT: EXAM: CHEST RADIOGRAPHY EXAM DATE: 10/02/2018 03:14 PM. CLINICAL HISTORY: Post thoracentesis puncture. COMPARISON: CHEST 1 VIEW 09/29/2018 11:47 AM. TECHNIQUE: 1 view. FINDINGS: Lungs/Pleura: Persistent low lung volumes although aeration minimally improved. Persistent predominate perihilar pattern of airspace opacity consistent with moderate edema. No appreciable residual right-sided effusion. No postprocedural pneumothorax. At least small left-sided pleural effusion. Mediastinum: Mild cardiomegaly accounting for technique. Mediastinal and hilar contours are within expected limits. Other: None. IMPRESSION: 1. No evidence of postprocedural pneumothorax. 2. Persistent cardiomegaly, left effusion and perihilar edema pattern. RAD[facility]
[2018-10-02 16:09] LABS: LYMPHOCYTES %,BODY FLUID 77; MESOTHELIAL %, BF 1 %; MONOCYTES %,BODY FLUID 3 %
--- NOTE | 2018-10-02 16:13 | CONSULTATION NOTE ---
Palliative Care Consultation - Referral Referring Provider: Dr. Erick Moralez Time of Visit: [id number]: [id number] Referral setting: Hospitalized patient Referral Reason: Pneumonia/Metastatic Cancer unknown primary/Goals of Care - Information Sources Records reviewed: RN notes reviewed, Previous records reviewed History/Review of Systems obtained from: Family ( and Alexandro and daughter Lupe) Exam limitations: Clinical condition (patient on BIPAP; unable to talk) - History of Present Illness Brief History of Present Illness: This is a 88-year-old woman who is morbidly obese, who was hospitalized on 1 for increasing shortness of breath, worsening weakness, poor appetite, and productive cough. Patient at baseline had been deteriorating over the last couple years, most acutely over the last few weeks. She had been sedentary, but able to ambulate back and forth from her chair, and to the bathroom. She continued to worsen with increasing hypoxia, persistent shortness of breath, and was transition to ICU on 10/01. She has since been on BiPAP, and she was presenting with acute hypoxic respiratory failure secondary to worsening bilateral pneumonia. We are waiting for her to be tapped with thoracentesis, she does have moderate bilateral pleural effusions, the hope is her respiratory status would improve. She has also known acute on chronic COPD exacerbation, moderate pulmonary hypertension, acute renal insufficiency and chronic diastolic CHF. Of note on CT of the chest, they had found a enlarged thoracic lymph node. And her CT of the abdomen and pelvis showed two liver masses, No adrenal nodule 2.3 x 1.12 cm, as well as a 4.5 x 4.3 soft tissue density of the left margin of the rectum. She also has several enlarged retroperitoneal nodes, and a tissue density of 3.5 x 2.1 at the left margin of her uterus. Differential includes endometrial cancer versus colon cancer but with retroperitoneal nodes and liver masses known stage IV disease. and daughter did reflect patient has been weaker, less able to do for herself, but also was having some symptoms regarding possibly her dementia. Daughter reflects it was mostly behavioral, would get upset if got out of the routine, and was easily overwhelmed. Patient is unable to really respond other than while having family conference she was quite clear she said I want to go home, and was pretty agitated about this. We did discuss in the context that patient would need to stabilize respiratory arcos, before transition home. Reassured daughter we did not need a biopsy if the choice was to transition to hospice and comfort measures. Patient currently is unstable, would need to be breathing on her own, symptoms controlled, suspect she will be bedbound on transition to home. Medical/Surgical History - Past Medical History Cardiovascular: reports: Congestive heart failure, Hypertension, High cholesterol, Peripheral Vascular Disease, Atrial fibrillation, Murmur, Arrhythmia Respiratory: reports: COPD, Pneumonia, Shortness of breath, Sleep apnea, Other Neuro: Alzhiemer's, Dementia, Headaches, Tremors Endocrine/Autoimmune: reports: None GI: reports: GERD : reports: Incontinence, Renal insuffiency, Nocturia HEENT: reports: Chronic vision loss, Chronic hearing loss Psych: reports: Depression Musculoskeletal: reports: Osteoarthritis, Fibromyalgia, Osteoporosis, Fatigue, Chronic back pain Derm: reports: Other MRSA Hx?: No - Past Surgical History HEENT: reports: Tonsil/Adenoidectomy - Substance History Use: Uses substance without health or social issues: Tobacco (patient pen tender smoder) Social History - Living Situation Living arrangement: At home Living Situation: With spouse/s.o. Support System: Lives at home with her elderly spouse, they have been for 68 years. They have lived on [facility] for over [place], originally from [place] but moved to [facility] from [place]. They have a daughter and 2 sons, daughter is currently here from [place]. They have been getting services from [employer], it sounds like through [facility] or [employer]. Has had difficulty with workers showing up for work, are following through on shifts. Patient has needed increased care, particularly as she has gotten weaker.They do have limited resources. [place] is when patient became agitated and insisted wanted to go home. Family History - Family History Family History: Mother: , CAD, Father: , CAD Medications/Allergies - Medications Active Medication List: Active Medications Acetaminophen (Tylenol) 650 mg PO Q4HR PRN PRN Reason: Pain 1 to 4 Allopurinol (Zyloprim) 100 mg PO DAILY FOR[facility]LY [facility], [facility] Last Admin: 10/02/18 11:33 Dose: Not Given Atorvastatin Calcium (Lipitor) 20 mg PO QPM FOR[facility], [facility] Last Admin: 10/01/18 21:15 Dose: 20 mg Budesonide (Pulmicort) 0.5 mg INH RTBID [facility], [facility]1983 Last Admin: 10/02/18 06:00 Dose: 0.5 mg Calcium Carbonate/Glycine (Oysco-500) 500 mg PO DAILY FOR[facility]LY [facility], [facility] Last Admin: 10/02/18 11:33 Dose: Not Given Cholecalciferol (Vitamin D3) 1,000 unit PO DAILY FOR[facility]LY [facility], [facility] Last Admin: 10/02/18 11:33 Dose: Not Given Digoxin (Lanoxin Inj) 250 mcg IVP Q6HR SHANE Stop: 10/03/18 00:01 Docusate Sodium (Colace 250mg Capsule) 250 - 500 mg PO DAILY FOR[facility], [facility] Last Admin: 10/02/18 11:33 Dose: Not Given Furosemide (Lasix Inj 40 Mg Vial) 40 mg IVP BIDDIURETIC FOR[facility]LY [facility], [facility]–1983 Meropenem 1 gm/ Sodium (Chloride) 100 mls @ 200 mls/hr IV Q8H FOR[facility]LY [facility], [facility] Last Infusion: 10/02/18 11:04 Dose: Infused Diltiazem HCl 125 mg/ Dextrose 125 mls @ 5 mls/hr IV .Q25H FOR[facility], [facility]; Protocol Last Titration: 10/02/18 15:59 Dose: 15 mg/hr, 15 mls/hr Ipratropium [place] (Atrovent) 0.5 mg INH RTQ4H PRN PRN Reason: Shortness of Air/Wheezing Last Admin: 10/02/18 10:36 Dose: 0.5 mg Ketorolac Tromethamine (Toradol Inj (15mg)) 15 mg IVP Q6HR PRN PRN Reason: PAIN Stop: 10/04/18 22:18 Last Admin: 10/02/18 11:02 Dose: 15 mg Levalbuterol HCl (Xopenex) 1.25 mg INH RTQID [facility], [facility] Last Admin: 10/02/18 16:08 Dose: 1.25 mg Lorazepam (Ativan Inj (Vial)) 0.5 mg IVP Q2H PRN PRN Reason: Anxiety Last Admin: 10/02/18 14:17 Dose: 0.5 mg Methylprednisolone (Solu-Medrol (40mg Vial)) 60 mg IVP BID [facility] Metoprolol Tartrate (Lopressor Inj) 5 mg IVP Q6HR PRN PRN Reason: HR>120 Last Admin: 10/02/18 09:58 Dose: 5 mg Montelukast Sodium (Singulair) 10 mg PO QPM [facility] Last Admin: 10/01/18 21:16 Dose: 10 mg Morphine Sulfate (Morphine) 2 mg IVP Q2HR PRN PRN Reason: SOB or pain Last Admin: 10/02/18 13:57 Dose: 2 mg Multi-Ingredient Ointment (Zinc Oxide) 1 applic TOP PRN PRN PRN Reason: Skin Care Last Admin: 10/02/18 12:01 Dose: 1 applic Polyethylene Glycol (Miralax) 17 gm PO DAILY [facility] Last Admin: 10/02/18 11:34 Dose: Not Given Senna (Senokot) 8.6 - 17.2 mg PO DAILY [facility] Last Admin: 10/02/18 11:34 Dose: Not Given Sodium Chloride (Normal Saline Flush 0.9%) 10 ml IVP PRN PRN PRN Reason: NEEDED PER PROVIDER ORDERS Last Admin: 10/02/18 14:20 Dose: 10 ml Sodium Chloride (Normal Saline Flush 0.9%) 10 ml IVP 0100,0900,1700 [facility] Last Admin: 10/02/18 09:19 Dose: 20 ml Temazepam (Restoril) 15 mg PO QPM PRN PRN Reason: Insomnia Aspirin [Adult Low Dose Aspirin EC] 81 mg PO DAILY 09/06/15 Calcium/D3/Mag Ox/Charter Coordinator/Gustavo/Zn [Caltrate+D3 Plus Mineral Minis] 1 each PO DAILY 09/06/15 Chlorthalidone 25 mg PO DAILY 09/06/15 Cholecalciferol (Vitamin D3) [Vitamin D] 1,000 unit PO DAILY 09/06/15 Multivitamin-Minerals No.55 [Centrum Flavor Burst Adult Chw] 100 mcg PO DAILY 09/06/15 Acetaminophen [Tylenol Extra Strength] 500 mg PO TID PRN 09/29/18 Atorvastatin Calcium 20 mg PO QPM 09/29/18 Furosemide [Lasix] 20 mg PO DAILY 09/29/18 Gabapentin [Neurontin] 300 mg PO TID 09/29/18 Losartan [Cozaar] 50 mg PO DAILY 09/29/18 Vitamin E (Dl,Tocopheryl Acet) [Vitamin E] 400 unit PO DAILY 09/29/18 diltiaZEM CD [Cardizem Cd] 240 mg PO DAILY 09/29/18 - Allergies Allergies/Adverse Reactions: Allergies Allergy/AdvReac Type Severity Reaction Status Date / Time codeine AdvReac Emesis Verified 09/28/18 12:24 Review of Systems - Constitutional Constitutional: reports: Fatigue, Weight gain. denies: Fever, Chills - Cardiovascular Cardiovascular: reports: Edema, Decr. exercise tolerance - Respiratory Respiratory: reports: Cough, Sputum production, SOB at rest, SOB with exertion, Other (currently on bipap since 10/01) - Gastrointestinal Gastrointestinal: reports: Poor appetite - Genitourinary Genitourinary: reports: Incontinence, Other (currently with sloan) - Musculoskeletal Musculoskeletal: reports: Muscle weakness - Integumentary Integumentary: reports: Dryness - Neurological Neurological: reports: General weakness, Memory problems (unclear baseline) - Psychiatric Psychiatric: reports: Depression, Anxiety - Hematologic/Lymphatic Hematologic/Lymphatic: reports: Anemia, Recurrent infections (worsening bilat. pneumonia) - All Other Systems All Other Systems: reports: Other (limited ROS) Physical Exam - Vital Signs Vital Signs: Vital Signs x48h Temp Pulse Pulse Resp BP BP BP 10/02/18 16:06 126 H 155/73 H 10/02/18 16:04 120 H 10/02/18 15:00 126 H 27 H 119/81 H 10/02/18 14:43 125 H 29 H 119/81 H 10/02/18 14:11 134 H 10/02/18 14:00 36.6 C 121 H 27 H 126/71 10/02/18 13:30 135 H 10/02/18 12:57 137 H 24 134/99 H 10/02/18 12:34 136 H 10/02/18 12:00 126 H 38 H 136/84 H 10/02/18 11:27 112/72 10/02/18 11:13 146/84 H 10/02/18 11:00 135 H 30 H 120/64 10/02/18 10:59 131/82 H 10/02/18 10:45 133 H 131/82 H 10/02/18 10:35 132 H 28 H 10/02/18 10:30 130 H 10/02/18 10:15 127 H 24 144/60 H 10/02/18 10:10 122 H 144/60 H 10/02/18 10:05 131 H 149/122 H 10/02/18 10:00 142 H 127/105 H 10/02/18 09:58 147/62 H 04/05/19 09:00 92 23 147/67 H 10/02/18 08:28 95 Pulse Ox 10/02/18 16:06 10/02/18 16:04 10/02/18 15:00 95 10/02/18 14:43 96 10/02/18 14:11 10/02/18 14:00 94 10/02/18 13:30 10/02/18 12:57 93 10/02/18 12:34 10/02/18 12:00 89 L 10/02/18 11:27 10/02/18 11:13 10/02/18 11:00 92 10/02/18 10:59 10/02/18 10:45 10/02/18 10:35 10/02/18 10:30 10/02/18 10:15 91 L 10/02/18 10:10 10/02/18 10:05 10/02/18 10:00 10/02/18 09:58 10/02/18 09:00 93 10/02/18 08:28 - Physical Exam General Appearance: positive: Moderate distress Eyes Bilateral: positive: Other (eyes closed) ENT: positive: Dry mucous membranes (with BIpAP) Respiratory: positive: Other (respiratory effort; pulling at mask) Abdomen: positive: Obese Skin: positive: Pallor, Dryness Extremities: positive: Pedal edema Palliative Care - POLST Patient has POLST: Yes POLST Status: DNR, Selective Treatment Dyspnea: Severe (7-10), Comment (patient receiving MS 1mg with some relief of distress;) - Palliative Care Discussion: Met at patient's bedside, with Alexandro and daughter Lupe. Patient has been unable to participate, but did seem to be aware of conversation. Daughter shared understanding patient has metastatic cancer, wanting her to transition to hospice when she is stable. Discussed in the context of her fragility, awaiting thoracentesis, to see if can stabilize respiratory status at baseline. This would need to be first goal to be met, to consider transition home and to be able to manage patient's care needs. Alexandro is quite elderly, is appropriately tearful, talked about selling his home and moving to [place] where they have more facilities. Did gently challenge him in the context of most likely this will be more rapid decline than this, as she has been declining over several weeks to months already. Counseling provided regarding the hospice benefit, including visiting nurses, bathing, equipment but limitation of not providing 24/7 care. They already are connected with [facility] so hopefully would be able to initiate caregiving hours quickly if patient were able to discharge home. Did follow-up with hospice, they do have an opening on Friday. Patient would meet criteria, but would need to be better stabilized before transitioning to home setting. Met briefly with Lupe and after thoracentesis. Patient is breathing easier and they are somewhat relieved. Did discuss in the context of anticipatory guidance, the patient most likely be bedbound at home, which does ease caregiver burden. Would be able to keep the Sloan catheter, and set up care at home, including BLS transfer. There is still concerns given patient's morbid obesity, being able to manage her, will need to evaluate closer to discharge regarding plan. Did encourage though given the fragility of the situation, she does have 2 other sons, to give them an opportunity to come see her. She definitely may continue to deteriorate given her multiple underlying comorbidities, and continued respiratory compromise.Did make contact with hospice, given will need a second thoracentesis most likely available on Friday, and unless provider performs over weekend. This information was passed on to hospice, for preplanning if needs to move admit out. Husbands Katheryn number [phone]; Daughter Lupe her for several days [phone] Results - Lab Results Lab results reviewed: Yes Fish Bones: 10/02/18 04:45 10/02/18 04:45 Lab and Imaging Results: Lab Results x24hrs 10/02/18 10/02/18 10/02/18 Range/Units 15:05 12:16 10:12 WBC (4.8-10.8) x10^3/uL RBC (4.20-5.40) 10^6/uL Hgb (12.0-16.0) g/dL Hct (37.0-47.0) % MCV (81.0-99.0) fL MCH (27.0-31.0) pg MCHC (32.0-36.0) g/dL RDW (12.0-15.0) % Plt Count (130-450) 10^3/uL MPV (7.9-10.8) fL Neut # (Auto) (1.5-6.6) 10^3/uL Lymph # (Auto) (1.5-3.5) 10^3/uL Ripley # (Auto) (0.0-1.0) 10^3/uL Eos # (Auto) (0.0-0.7) 10^3/uL Baso # (Auto) (0.0-0.1) 10^3/uL Absolute Nucleated RBC x10^3/uL Nucleated RBC % /100WBC PT (9.9-12.6) secs INR (0.8-1.2) Bld Gas Analysis Time 1229 1012 Sample Site LEFT RADIAL RIGHT RADIAL ABG pH 7.38 7.39 (7.35-7.45) ABG pCO2 36 36 (34-45) mmHg ABG pO2 72 L 58 L (80-100) mmHg ABG HCO3 20.5 L 21.4 L (22.0-26.0) mmol/L ABG Total CO2 21.6 22.5 (21.0-29.0) MMOL/L ABG O2 Saturation 93 L 89 L (94-98) % ABG Oximetry Spot Check 91 89 % ABG Base Excess -4.1 L -3.1 L (-2.0-3.0) mmol/L Marcelo Test POSITIVE POSITIVE Respiration Rate 28 28 b/min O2 Delivery Device BiPAP BiPAP Vent Mode SYNCHRONOUS/TIMES SYNCHRONOUS/TIMES FiO2 804.00 70.00 Tidal Volume 605 593 mL Pressure Support Vent 6 6 cmH2O EPAP 6 6 cmH2O IPAP 12 12 cmH2O Sodium (135-145) mmol/L Potassium (3.5-5.0) mmol/L Chloride (101-111) mmol/L Carbon Dioxide (21-32) mmol/L Anion Gap (6-13) BUN (6-20) mg/dL Creatinine (0.4-1.0) mg/dL Estimated GFR (MDRD) (>89) Glucose (70-100) mg/dL Calcium (8.5-10.3) mg/dL Total Bilirubin (0.2-1.0) mg/dL AST (10-42) IU/L ALT (10-60) IU/L Alkaline Phosphatase (42-121) IU/L B-Natriuretic Peptide (5-100) pg/mL Total Protein (6.7-8.2) g/dL Albumin (3.2-5.5) g/dL Globulin (2.1-4.2) g/dL Albumin/Globulin Ratio (1.0-2.2) Tumor Marker AFP ng/mL Fluid Source PLEURAL Fluid Color YELLOW Fluid Clarity CLEAR Fluid WBC 174 /mm^3 Fluid RBC < 1000 /mm^3 Fluid Neutrophils % 19 % Fluid Lymphocytes % 77 Fluid Monocytes % 3 % Fld Mesothelial Cell % 1 % 10/02/18 10/02/18 10/02/18 Range/Units 09:37 04:45 04:45 WBC (4.8-10.8) x10^3/uL RBC (4.20-5.40) 10^6/uL Hgb (12.0-16.0) g/dL Hct (37.0-47.0) % MCV (81.0-99.0) fL MCH (27.0-31.0) pg MCHC (32.0-36.0) g/dL RDW (12.0-15.0) % Plt Count (130-450) 10^3/uL MPV (7.9-10.8) fL Neut # (Auto) (1.5-6.6) 10^3/uL Lymph # (Auto) (1.5-3.5) 10^3/uL Ripley # (Auto) (0.0-1.0) 10^3/uL Eos # (Auto) (0.0-0.7) 10^3/uL Baso # (Auto) (0.0-0.1) 10^3/uL Absolute Nucleated RBC x10^3/uL Nucleated RBC % /100WBC PT 14.2 H (9.9-12.6) secs INR 1.3 H (0.8-1.2) Bld Gas Analysis Time Sample Site ABG pH (7.35-7.45) ABG pCO2 (34-45) mmHg ABG pO2 (80-100) mmHg ABG HCO3 (22.0-26.0) mmol/L ABG Total CO2 (21.0-29.0) MMOL/L ABG O2 Saturation (94-98) % ABG Oximetry Spot Check % ABG Base Excess (-2.0-3.0) mmol/L Marcelo Test Respiration Rate b/min O2 Delivery Device Vent Mode FiO2 Tidal Volume mL Pressure Support Vent cmH2O EPAP cmH2O IPAP cmH2O Sodium (135-145) mmol/L Potassium (3.5-5.0) mmol/L Chloride (101-111) mmol/L Carbon Dioxide (21-32) mmol/L Anion Gap (6-13) BUN (6-20) mg/dL Creatinine (0.4-1.0) mg/dL Estimated GFR (MDRD) (>89) Glucose (70-100) mg/dL Calcium (8.5-10.3) mg/dL Total Bilirubin (0.2-1.0) mg/dL AST (10-42) IU/L ALT (10-60) IU/L Alkaline Phosphatase (42-121) IU/L B-Natriuretic Peptide 418 H (5-100) pg/mL Total Protein 5.4 L (6.7-8.2) g/dL Albumin (3.2-5.5) g/dL Globulin (2.1-4.2) g/dL Albumin/Globulin Ratio (1.0-2.2) Tumor Marker AFP ng/mL Fluid Source Fluid Color Fluid Clarity Fluid WBC /mm^3 Fluid RBC /mm^3 Fluid Neutrophils % % Fluid Lymphocytes % Fluid Monocytes % % Fld Mesothelial Cell % % 10/02/18 10/02/18 10/01/18 Range/Units 04:45 04:45 09:33 WBC 17.9 H (4.8-10.8) x10^3/uL RBC 3.29 L (4.20-5.40) 10^6/uL Hgb 9.2 L (12.0-16.0) g/dL Hct 29.5 L (37.0-47.0) % MCV 89.7 (81.0-99.0) fL MCH 28.0 (27.0-31.0) pg MCHC 31.2 L (32.0-36.0) g/dL RDW 18.7 H (12.0-15.0) % Plt Count 269 (130-450) 10^3/uL MPV 10.1 (7.9-10.8) fL Neut # (Auto) 16.5 H (1.5-6.6) 10^3/uL Lymph # (Auto) 0.5 L (1.5-3.5) 10^3/uL Ripley # (Auto) 0.8 (0.0-1.0) 10^3/uL Eos # (Auto) 0.0 (0.0-0.7) 10^3/uL Baso # (Auto) 0.0 (0.0-0.1) 10^3/uL Absolute Nucleated RBC 0.01 x10^3/uL Nucleated RBC % 0.0 /100WBC PT (9.9-12.6) secs INR (0.8-1.2) Bld Gas Analysis Time Sample Site ABG pH (7.35-7.45) ABG pCO2 (34-45) mmHg ABG pO2 (80-100) mmHg ABG HCO3 (22.0-26.0) mmol/L ABG Total CO2 (21.0-29.0) MMOL/L ABG O2 Saturation (94-98) % ABG Oximetry Spot Check % ABG Base Excess (-2.0-3.0) mmol/L Marcelo Test Respiration Rate b/min O2 Delivery Device Vent Mode FiO2 Tidal Volume mL Pressure Support Vent cmH2O EPAP cmH2O IPAP cmH2O Sodium 142 (135-145) mmol/L Potassium 4.7 (3.5-5.0) mmol/L Chloride 108 (101-111) mmol/L Carbon Dioxide 22 (21-32) mmol/L Anion Gap 12.0 (6-13) BUN 47 H (6-20) mg/dL Creatinine 1.3 H (0.4-1.0) mg/dL Estimated GFR (MDRD) 39 L (>89) Glucose 133 H (70-100) mg/dL Calcium 8.4 L (8.5-10.3) mg/dL Total Bilirubin 0.6 (0.2-1.0) mg/dL AST 35 (10-42) IU/L ALT 37 (10-60) IU/L Alkaline Phosphatase 80 (42-121) IU/L B-Natriuretic Peptide (5-100) pg/mL Total Protein 5.5 L (6.7-8.2) g/dL Albumin 2.0 L (3.2-5.5) g/dL Globulin 3.5 (2.1-4.2) g/dL Albumin/Globulin Ratio 0.6 L (1.0-2.2) Tumor Marker AFP 4.2 ng/mL Fluid Source Fluid Color Fluid Clarity Fluid WBC /mm^3 Fluid RBC /mm^3 Fluid Neutrophils % % Fluid Lymphocytes % Fluid Monocytes % % Fld Mesothelial Cell % % Impression and Recommendations - Palliative Care Impression: This is an unfortunate 88-year-old woman who was admitted with bilateral pneumonia, with worsening hypoxic failure, currently on BiPAP. She has received thoracentesis, with 1 L removed, with improved oxygen saturation, and does appear more comfortable. Patient also presents with clinical presentation of metastatic cancer of unknown origin most likely colon versus endometrial. Given the goals of care, and patient's goal to go home, looking at transition to hospice in the home setting on discharge if patient stabilizes Recommendations/Counseling Done: 1. Acute hypoxic respiratory failure secondary to bilateral pneumonia. Patient with improved symptoms with thoracentesis. Patient does respond well also to morphine with decreased distress, and Lorazepam was effective for anxiety prior to thoracentesis. Family's goal is for patient to be comfortable, to relieve suffering, and hopefully to stabilize to bring home. Patient continue to receive BiPAP, as well as IV antibiotics. 2. Advanced care planning. Counseling provided regarding hospice benefit, goals of care, limitations in the home setting have 24/ support. Goal currently is at time of discharge, patient stable enough to discharge home with hospice support, most likely would need to go by BLS. Did reach out to REPORT CHECKER, to follow- up with [facility] to assist with increasing caregiving support in the home setting. Coordination of care with hospitalist, hospice, and REPORT CHECKER. Time Spent: 50 minutes with greater than 50% of this done in counseling, family conference, did it cut short given thoracentesis procedure, but do feel like verified goals of care and coordinated care for transition to hospice when patient stabilizes. Anticipatory guidance provided as well
[2018-10-02] MEDS: DIGOXIN 500 MCG/2 ML AMP IVP SCH (18:10)
[2018-10-02 18:20] LABS: ABG BASE EXCESS -3.2 mmol/L (-2.0-3.0); ABG OXYGEN SATURATION 91 % (94-98); ABG PCO2 40 mmHg (34-45); ABG PH 7.36 (7.35-7.45); ABG PO2 66 mmHg (80-100); ABG TCO2 23.2 MMOL/L (21.0-29.0); ALLEN TEST POSITIVE
[2018-10-02] MEDS ORDERED: BUFFERED LIDOCAINE 10 ML SYRINGE IU ONE (18:28)
[2018-10-02] MEDS ORDERED: methylPREDNISolone SUCCINATE 40 MG/ML VIAL IVP SCH (21:00)
[2018-10-02] MEDS: ATORVASTATIN 10 MG TABLET PO SCH (21:15)
[2018-10-02] MEDS: MONTELUKAST 10 MG TABLET PO SCH (21:15)
[2018-10-03] MEDS: DIGOXIN 500 MCG/2 ML AMP IVP SCH ×2 (00:10→10:53)
[2018-10-03] MEDS: SODIUM CHLORIDE FLUSH 0.9% 10 ML SYRINGE IVP PRN ×11 (00:11→08:49)
[2018-10-03] MEDS: MORPHINE 2 MG/ML SYRINGE IVP PRN ×9 (00:21→15:44)
[2018-10-03] MEDS: SODIUM CHLORIDE FLUSH 0.9% 10 ML SYRINGE IVP SCH ×3 (00:22→18:31)
[2018-10-03] MEDS: LORazepam 2 MG/ML VIAL IVP PRN ×6 (01:28→07:56)
[2018-10-03] MEDS: MEROPENEM 1 GM in SODIUM CHLORIDE 0.9% MINIBAG 100 ML IV SCH ×3 (03:13→19:54)
[2018-10-03] MEDS ORDERED: MORPHINE 2 MG/ML SYRINGE ONE (03:22)
[2018-10-03] MEDS ORDERED: FUROSEMIDE 40 MG/4 ML VIAL IVP SCH (06:00)
[2018-10-03 07:20] LABS: BASOPHILS % (AUTO) 1.3 %; EOSINOPHILS % (AUTO) 0.6 %; HGB - HEMOGLOBIN 9.7 g/dL (12.0-16.0); LYMPHOCYTES % (AUTO) 2.1 %; MEAN CORPUSCULAR HGB CONC 30.9 g/dL (32.0-36.0); MEAN CORPUSCULAR VOLUME 90.6 fL (81.0-99.0); MEAN PLATELET VOLUME 10.6 fL (7.9-10.8); PLT - PLATELET COUNT 278 10^3/uL (130-450); RED BLOOD COUNT 3.46 10^6/uL (4.20-5.40); RED CELL DISTRIBUTION WIDTH 18.3 % (12.0-15.0)
[2018-10-03] MEDS: LEVALBUTEROL 1.25 MG/3 ML NEB INH SCH ×4 (07:37→19:41)
[2018-10-03] MEDS: BUDESONIDE 0.5 MG/2 ML NEB INH SCH (07:37)
[2018-10-03 07:41] LABS: ALBUMIN 2.1 g/dL (3.2-5.5); ALBUMIN/GLOBULIN RATIO 0.6 (1.0-2.2); BILIRUBIN,TOTAL 0.6 mg/dL (0.2-1.0); CALCIUM 8.6 mg/dL (8.5-10.3); CREATININE 1.6 mg/dL (0.4-1.0); TOTAL PROTEIN 5.7 g/dL (6.7-8.2)
[2018-10-03 07:44] LABS: ABNORMAL LYMPHS % (MANUAL) 0 %
[2018-10-03 07:46] LABS: DIGOXIN 1.9 ng/mL
[2018-10-03 07:53] LABS: BAND NEUTROPHILS % (MANUAL) 1 %; LYMPHOCYTES # (MANUAL) 0.2 10^3/uL (1.5-3.5); LYMPHOCYTES % (MANUAL) 1 %; METAMYELOCYTES % (MANUAL) 1 %; MONOCYTES # (MANUAL) 0.9 10^3/uL (0.0-1.0); MYELOCYTES % (MANUAL) 1 %; NEUTROPHILS # (MANUAL) 20.5 10^3/uL (1.5-6.6); NEUTROPHILS % (MANUAL) 92 %
[2018-10-03 07:54] LABS: DIFFERENTIAL COMMENT MANUAL DIFFERENTIAL; PLATELET ESTIMATE, MANUAL NORMAL (130-450,000) (NORMAL); PLATELET MORPHOLOGY 1+ GIANT PLATELETS (NORMAL); RBC MORPHOLOGY (MULTIPLE) 1+ ANISOCYTOSIS (NORMAL)
[2018-10-03] MEDS ORDERED: DEXTROSE 5%-0.9% NACL 1,000 ML IV SCH ×2 (08:00→08:57)
--- NOTE | 2018-10-03 08:48 | XRAY Report ---
Reason: Possibel empyema, bilateral parapneumonic effusion Procedure Date: 10/03/2018 Accession Number: [id number] / [id number] Procedure: XR - Chest 1 View X-Ray CPT Code: 15286 FULL RESULT: EXAM: CHEST RADIOGRAPHY EXAM DATE: 10/03/2018 08:15 AM. CLINICAL HISTORY: Possible empyema, bilateral parapneumonic effusion. COMPARISON: CHEST 1 VIEW 10/02/2018 2:56 PM. TECHNIQUE: 1 view. FINDINGS: Lungs/Pleura: Lungs remain hypoinflated. There has been interval worsening in diffuse airspace opacities and/or pattern of perihilar edema. No significant appreciable reaccumulation of right-sided pleural effusion. Persistent small left-sided pleural effusion. No appreciable extra ventilatory air. Mediastinum: Heart size is borderline enlarged for technique. Mediastinal and hilar contours are grossly unchanged and unremarkable. Other: None. IMPRESSION: 1. Interval worsening in diffuse airspace opacities and/or pulmonary edema. 2. No significant reaccumulation of right-sided pleural effusion. No significant increase in the known small left-sided effusion. RADIA
[2018-10-03] MEDS ORDERED: ACETAMINOPHEN 1,000 MG/100 ML 100 ML IV PRN (08:58)
[2018-10-03] MEDS ORDERED: DIGOXIN 125 MCG TABLET PO SCH (09:00)
[2018-10-03] MEDS ORDERED: VANCOMYCIN INJ 1 GM in SODIUM CHLORIDE 0.9% 250 ML IV SCH (09:00)
[2018-10-03] MEDS: methylPREDNISolone SUCCINATE 40 MG/ML VIAL IVP SCH ×2 (09:01→21:35)
[2018-10-03] MEDS: DOCUSATE SODIUM 250 MG CAPSULE PO SCH (09:09)
[2018-10-03] MEDS: FUROSEMIDE 40 MG/4 ML VIAL IVP SCH (09:10)
--- NOTE | 2018-10-03 09:23 | MISCELLANEOUS PROVIDER NOTE ---
Miscellaneous Provider Note - - Note: Subjective: Patient seen at bedside With worsening shortness of breath and unable to maintain saturations above 88%. Remains on BiPAP and is somewhat confused but responsive to painful stimuli. Objective: Vital signs Are somewhat stable however tachypnea persist with RR of 32. 80% O2 saturation on BiPAP at 95% fio2. Patient is afebrile, heart rate of 77 bpm. normal sinus rhythm, blood pressure 141/55 General: Patient is acutely ill-appearing morbidly obese,Encephalopathic and in moderate to severe respiratory distress HEENT: PERRLA. NCAT. Wide-based neck. No buccal lesions. Oropharynx clear. Dry mucous membranes. Neck: No JVD no bruits no lymphadenopathy. No thyromegaly. CV/lungs: S1-S2 within normal limits irregular irregular. Bilateral crackles noted mainly on right lung versus the left lung with increased work of breath and notable intercostal retractions with decreased breath sounds to the left versus the right. Abdomen: Soft nontender nondistended, positive bowel sounds all quadrants, no hepatosplenomegaly Extremities/skin: Patient's bilateral hands are cyanotic as well as bilateral feet. RUE edema. Bilateral lower extremity chronic edema with erythematous involvement to the anterior pretibial regions with no necrotic or purulent lesions. Bilateral bipedal edema with 1+ pulses dorsalis pedis bilaterally. Neuro: Grossly intact Labs: Reviewed Imaging studies: Reviewed Assessment/plan: (1) Sepsis secondary to parapneumonic effusion. -WBC up to 22K patient is also on steroids. -Patient has hypoxemic encephalopathy -We will add vancomycin to regimen already on IV Merrem. Continue with early goal-directed therapy. -We will obtain 2 more sets of blood cultures, obtain a lactic acid level, UA with reflex urine culture, continue to treat underlying causes. (2) Acute hypoxemic respiratory failure sec Worsening bilateral pneumonia with parapneumonic effusion, Multifactorial causes. -Patient is on continuous BiPAP at the present moment, continues to deteriorate. Shortness of breath secondary to bilateral pleural effusions, Status post ultrasound-guided right-sided thoracentesis with 750 cc of yellow turbid fluid out. LDH is elevated however lites criteria cannot be calculated due to pleural fluid sending out. WBC of pleural fluid 174, neutrophils 90%, lymphocytes 77%. Currently no growth. Serial ABGs while on Bipap show PO2 trending from 84.2>57.1>56.7>102.7>58>66. Spoke to spouse and he is agreeable for a chest tube placement for a reversible cause such as left-sided pleural effusion which may be parapneumonic causing compressive atelectasis. Surgery was consulted for possible chest tube placement. However after further discussion and risks and benefits chest tube is going to be deferred. (3) Worsening Bilateral pneumonia With associated bilateral moderate pleural effusion. Status post right-sided thoracentesis with 750 cc of yellow cloudy fluid. Surgery was consulted for possible chest tube placement. However after further discussion and risks and benefits chest tube is going to be deferred. Light's criteria to follow. CTA shows no evidence of pulmonary embolism to indicate a flash pulmonary edema however moderate bilateral pleural effusion may be infectious versus malignant. Component of possible diastolic CHF dysfunction CHF may be present however less likely. (4) Acute on Chronic COPD exacerbation. -Patient is non-O2 dependent. Medical management as per above. Patient does not appear to be CO2 retaining on serial ABGs. Up titration of morphine for shortness of breath. We will decrease Solu-Medrol to 40 mg IV twice daily. Continue with Xopenex 4 times daily. Diffuse cyanosis clinically poor sign of worsening hypoxemia. hx of Tobacco dependence from age [age]. No home oxygen use. Patient has no evidence of CO2 or hypercapnia on serial ABGs. We will continue with BiPAP as per above. (5) Moderate pulmonary hypertension with elevated right ventricular pressures seen on echocardiogram with hyperdynamic function. Currently due to patient's pulmonary edema would indicate afterload reduction however in the setting of the acuity would hold off on coreg and dilatiazem for now as this may exacerbate problem. Would restart once patient is more stable respiratory arcos. In addition may benefit from revatio as outpatient, and perhaps sleep study if not had one in past. (6) Acute renal insufficiency with unknown baseline -Worsening renal insufficiency with unknown baseline, likely as result of sepsis as it pertains to parapneumonic effusions and being on high-dose Lasix. Patient currently on Lasix 40 mg IV daily, avoid other nephrotoxic agents; d/c toradol, she appears to be somewhat fluid overloaded with BNP elevated but UO decreased. Continue to follow renal function correct underlying electrolyte disturbances. Patient has hyperuricemia. Hold all p.o. meds for now. Losartan being held as well as chlorthalidone. (7) Mediastinal adenopathy with largest measuring to 3 cm, Along with retroperitoneal lymphadenopathy -CT chest with Contrast shows multiple low left pelvis soft tissue densities along with enlarged retroperitoneal lymph nodes concerning for metastatic primary colon CA versus metastatic satellite implants versus endometrial carcinoma. Would favor endometrial carcinoma as CEA/alpha-fetoprotein unremarkable. -Due to the fact that this is high chance of malignancy patient's DNR status would prohibit such invasive or aggressive interventions in terms of biopsies and/or if it is cancer to pursue chemoradiation. -Malignant pleural effusions is not entirely excluded (8) Suspected Malignant liver masses With metastatic process -CT abdomen pelvis with IV contrast showed a 3.6 x 2.6 cm rounded hypodense mass with segment 7 of the liver. There is a 3.7 x 2.1 cm hypodense mass with segment 6 of the liver. There are enlarged retroperitoneal lymph nodes with associated 4.5 x 4.3 cm heterogeneous soft tissue density at the left margin of the rectum. In additionThere is a heterogeneous density of the central uterus with endometrial air. Differential diagnosis include primary colon cancer with adjacent satellite lesions versus endometrial CA. (9) RVR afib with SVT: Resolved -Patient with underlying chronic atrial fibrillation and was in RVR A. fib as a result of demand ischemia pertaining to worsening hypoxemia. Patient had a digoxin load and placed on maintenance therapy to continue with 125 mcg of digoxin. Digoxin level is 1.9. Patient was placed on diltiazem drip as well and converted yesterday on 10/02 with EKG ordered to follow. Will continue to c orrect electrolytes and maintain potassium above 4.0 and magnesium above 2.0. Due to patient's renal insufficiency will monitor digoxin due to possible toxicity. (10) Chronic Diastolic CHF pt ECHO reveals EF>75%, but with RVSP 51 mmHG, and in pulmonary edema, and elevated BNP Currently on Lasix 40 mg IV daily, Aldactone being held. Diltiazem and Coreg being held. On IV digoxin 125 mg daily. Off of diltiazem drip. Serial BNP's. Will Provide afterload reduction with nitroglycerin patch. (11) PVD with Chronic bilateral lower extremity edema with erythematous anterior tibial regions. -Patient seems MAC outpatient and this has improved - Patient is not anticoagulated, please tell as well as heparin were held due to thoracentesis. Might need a repeat thoracentesis. Continue on statin. Correct modifiable risk factors of underlying hypertension hyperlipidemia as well as decreasing in weight and offloading of lower extremities. Advance care education and counseling provided with an updated POLST. Patient's spouse who is making decisions on patient's care has elected on chest tube placement and management for a reversible pleural effusion, trajectory of illness and symptomatic management of medical conditions have been discussed. Patient and spouse have met with palliative care service and they have suggested hospice due to patient's suspected underlying malignancy with metastatic process. CODE STATUS: DNR. The had brought an old POLST dated 2016 which shows DNR with comfort care measures will revisit and update existing POLST. Total critical care time 35 minutes
[2018-10-03] MEDS: ZINC OXIDE 20% OINT 28.35 GM TUBE TOP PRN (10:00)
[2018-10-03] MEDS ORDERED: VANCOMYCIN INJ 2 GM in SODIUM CHLORIDE 0.9% 500 ML IV ONE (10:00)
--- NOTE | 2018-10-03 10:29 | CONSULTATION NOTE ---
Referring Provider Name of Referring Provider:: Dr. Ananda Moralez Consult Date: 10/03/18 Chief Complaint - Chief Complaint Chief Complaint: Respiratory failure consulted for possible tube thoracostomy History of Present Illness - Admitted From Admitted From:: [facility] - History Obtained From Records Reviewed: Yes History obtained from: Dr. Moralez, family and chart - patient is unable to answer questions Exam Limitations: Patient is unable to answer questions - History of Present Illness HPI Comment/Other: Dr. Ananda Moralez called me on consultation for this unfortunate 88-year-old female with multiple comorbidities including but not limited to COPD, hypertension, dyslipidemia, chronic pain, dementia, congestive heart failure, osteoporosis, urinary incontinence, chronic tobacco abuse, grade 3 morbid obesity who was admitted to our hospital with respiratory failure on September 28 with a possibility of aspiration pneumonia. Her admission white blood cell count was 18 and she was started on appropriate antibiotics. The white count dropped to 12 with this. The patient developed atrial fibrillation with RVR and this has been treated. Her antibiotics have been changed again appropriately but despite this her white count is now 22. A thoracentesis was performed on the patient's right hand side with return of approximately 750 cc of clear yellow fluid. The fluid was checked for white cells red cells and there was a preponderance of lymphocytes noted. Unfortunately I cannot see where this fluid was sent off for protein LDH cholesterol or glucose. The description of the fluid fits that of a transudate but some studies to prove that it was not an exudate would help and may still be able to be run. I was called to see whether or not a therapeutic thoracentesis could be performed on the patient's left hand side. Prior to seeing the patient I reviewed the chest x-ray from today which shows that the patient has a very small left-sided pleural effusion. The chest x-ray picture is consistent with fluid overload/failure in my discussions with Dr. Moralez it is likely that the patient has some degree of diastolic dysfunction. The family also asked me about the findings on the abdominal CT scan that showed the possibility of a primary rectal malignancy with possible metastasis. I explained to the family that in my review of the pictures this process will not kill the patient in the foreseeable future. If she were to survive this episode a workup is indicated but discussion would have to be undertaken as to whether or not the patient is a surgical candidate. I showed the family including the daughter and the chest x-rays and compared to yesterday's and today's. Additionally, I showed them the CT scan and explained the pleural effusion. I dee diagrams of the heart and explained to the best of my ability diastolic dysfunction and why diuretics would not work. The example I gave his a sump pump in the basement and I explained that the problem here is not fluid but rather the pump. I also explained that the current clinical situation where the patient is breathing heavily and quickly with decreased oxygen is not sustainable. It is clear that the patient's wish was not to be intubated, and the daughter asked me if there is any way that this situation could be improved. I explained that intubation would allow us to get control of her breathing, decrease the work of breathing, improve her oxygenation, possibly improve her cardiac status but the problem is the patient had stated a wish that she never wish to be intubated. I explained that this could be revisited and if the patient were to allow herself to be reintubated it could be done for a limited amount of time be at 3, 5, 7 or 10 days at which point if there was no improvement the patient can be extubated. I went into great detail how difficult it is to treat diastolic dysfunction and explained that Dr. Moralez has "his work cut out for him." I explained that there is currently no role for thoracentesis or tube thoracostomy. As an aside I would recommend that the labs should be called to see whether or not the pleural fluid could be sent for the aforementioned studies. Again, I think this is a transudate but confirmation would be helpful. History - Past Medical History Cardiovascular: reports: Congestive heart failure, Hypertension, High cholesterol, Peripheral Vascular Disease, Atrial fibrillation, Murmur, Arrhythmia Respiratory: reports: COPD, Pneumonia, Shortness of breath, Sleep apnea, Other Neuro: reports: Alzhiemer's, Dementia, Headaches, Tremors Endocrine/Autoimmune: reports: None GI: reports: GERD : reports: Incontinence, Renal insuffiency, Nocturia HEENT: reports: Chronic vision loss, Chronic hearing loss Psych: reports: Depression Musculoskeletal: reports: Osteoarthritis, Fibromyalgia, Osteoporosis, Fatigue, Chronic back pain Derm: reports: Other MRSA Hx?: No - Past Surgical History HEENT: reports: Tonsil/Adenoidectomy - Family & Social History Family History: Mother: , CAD, Father: , CAD Living arrangement: At home Living Situation: With spouse/s.o. 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) - POLST Patient has POLST: Yes POLST Status: DNR Meds/Allgy - Home Medications Home Medications: Ambulatory Orders Medication Instructions Recorded Confirmed Aspirin [Adult Low Dose Aspirin EC] 81 mg PO DAILY 09/06/15 09/29/18 Calcium/D3/Mag Ox/Tube Making Machine Operator/Gustavo/Zn 1 each PO DAILY 09/06/15 09/29/18 [Caltrate+D3 Plus Mineral Minis] Chlorthalidone 25 mg PO DAILY 09/06/15 09/29/18 Cholecalciferol (Vitamin D3) 1,000 unit PO DAILY 09/06/15 09/29/18 [Vitamin D] Multivitamin-Minerals No.55 100 mcg PO DAILY 09/06/15 09/29/18 [Centrum Flavor Burst Adult Chw] Acetaminophen [Tylenol Extra 500 mg PO TID PRN 09/29/18 09/29/18 Strength] Atorvastatin Calcium 20 mg PO QPM 09/29/18 09/29/18 Furosemide [Lasix] 20 mg PO DAILY 09/29/18 09/29/18 Gabapentin [Neurontin] 300 mg PO TID 09/29/18 09/29/18 Losartan [Cozaar] 50 mg PO DAILY 09/29/18 09/29/18 Vitamin E (Dl,Tocopheryl Acet) 400 unit PO DAILY 09/29/18 09/29/18 [Vitamin E] diltiaZEM CD [Cardizem Cd] 240 mg PO DAILY 09/29/18 09/29/18 - Allergies Allergies/Adverse Reactions: Allergies Allergy/AdvReac Type Severity Reaction Status Date / Time codeine AdvReac Emesis Verified 09/28/18 12:24 Review of Systems - Other Findings Other Findings: I did not go into a detailed review of the patient's system as it is not indicated in my role as a customer care consultant regarding whether or not tube thoracostomy or thoracentesis would be helpful. Exam - Vital Signs Reviewed Vital Signs: Yes Vital Signs: Vital Signs x48h Temp Pulse Pulse Resp BP Pulse Ox 10/03/18 09:00 36.8 C 94 33 H 147/70 H 86 L 10/03/18 08:00 36.4 C L 84 32 H 124/102 H 87 L 10/03/18 07:46 81 33 H 10/03/18 07:40 77 10/03/18 07:00 72 32 H 141/55 H 88 L 10/03/18 06:09 71 10/03/18 06:00 69 31 H 131/51 H 88 L 10/03/18 05:00 68 30 H 133/53 H 88 L 10/03/18 04:19 69 10/03/18 04:00 36.4 C L 69 31 H 130/57 L 88 L 10/03/18 03:00 71 25 H 145/64 H 88 L - Physical Exam General Appearance: positive: Moderate distress (BiPAP nonrebreather in place, patient not responding to questions.) Comments/Other: An extensive examination was not performed, the patient is a morbidly obese with a BiPAP mask in place not responding to questions. Responding to painful stimuli. Conclusion/Plan - Diagnosis Diagnosis: Respiratory failure, likely pneumonia in the face of cardiac compromise and general poor condition (COPD, CHF, tobacco abuse, dementia, Alzheimer's, hypertension, dyslipidemia, frequent urinary tract infections and simply horrible deconditioning) - Plan Plan: \\In short thoracentesis or tube thoracostomy is not helpful and not indicated. I would check with lab to see whether or not the thoracentesis fluid to be sent off for LDH, protein, cholesterol, and glucose to confirm that this is a transudate and not an exudate. I do not think that the patient will improve without intubation but this runs counter to what the patient had stated that she wished to have prior to all of this starting (POLST form). I think that trying to manage her cardiac disease (diastolic dysfunction) and morbid obesity and the stresses this places on her pulmonary system without intubation will be extremely challenging and, no matter who the physician is, is likely prone to failure. The CT findings of the rectal lesions and possibly uterine lesions are not immediately lethal and should the patient survive this hospitalization then consideration could be given to biopsy. Again if the biopsy were to be a malignancy the question remains is the patient a surgical candidate. I wish to thank Dr. Ananda Moralez for this very interesting and challenging consultation. 60 minutes of [id number] time spent with the patient, the majority of which was spent in discussion, and completion of the requisite paperwork Michelle disclaimer: This document was created in part using voice recognition technology. Because of the inherent limitations of the system ([employer] user manual states that the licensee understands that speech recognition is a statistical process and that recognition errors are inherent in the process), occasional same sounding word substitutions and grammatical errors do occur and persist despite proofreading. Please read this document for context. - Lab Results Lab results reviewed: Yes Fish Bones: 10/03/18 06:59 10/03/18 06:59 - Diagnostic Imaging Results Diagnostic Imaging Results: positive: Final report reviewed, Read independently
[2018-10-03] MEDS: NITROGLYCERIN 0.2 MG/HR PATCH TOP SCH (11:24)
[2018-10-03] MEDS: LORazepam 100MG/100ML D5W 100 ML IV SCH ×2 (11:31→21:35)
[2018-10-03] MEDS ORDERED: CARBOXYMETHYLCELLULOSE OPHTH DROPS EACHEYE PRN (18:31)
[2018-10-03] MEDS ORDERED: GLYCOPYRROLATE 1 MG/5 ML VIAL SUBQ PRN (18:31)
[2018-10-03] MEDS ORDERED: ATROPINE 1% OPHTH DROPS 2 ML SL PRN (18:31)
[2018-10-04] MEDS: SODIUM CHLORIDE FLUSH 0.9% 10 ML SYRINGE IVP SCH ×2 (01:06→09:10)
[2018-10-04] MEDS: MEROPENEM 1 GM in SODIUM CHLORIDE 0.9% MINIBAG 100 ML IV SCH ×2 (03:57→11:10)
[2018-10-04] MEDS: LEVALBUTEROL 1.25 MG/3 ML NEB INH SCH ×2 (07:53→11:59)
[2018-10-04] MEDS: DIGOXIN 500 MCG/2 ML AMP IVP SCH (09:06)
[2018-10-04] MEDS: DOCUSATE SODIUM 250 MG CAPSULE PO SCH (09:07)
[2018-10-04] MEDS: methylPREDNISolone SUCCINATE 40 MG/ML VIAL IVP SCH (09:09)
[2018-10-04] MEDS: FUROSEMIDE 40 MG/4 ML VIAL IVP SCH (09:12)
[2018-10-04] MEDS: NITROGLYCERIN 0.2 MG/HR PATCH TOP SCH (09:12)
[2018-10-04] MEDS: MORPHINE 2 MG/ML SYRINGE IVP PRN ×3 (09:32→13:45)
[2018-10-04] MEDS: LORazepam 100MG/100ML D5W 100 ML IV SCH (10:08)
--- NOTE | 2018-10-04 10:31 | MISCELLANEOUS PROVIDER NOTE ---
Miscellaneous Provider Note - - Note: Subjective: Patient seen at bedside unresponsive and continues on BiPAP. An occasional moaning and groaning elicited by RN. Family members awaiting arrival. Objective: Afebrile. Heart rate of 81 and normal sinus rhythm. Blood pressure labile current 86/51. RR of 29. 91% O2 saturation on BiPAP with 100% FiO2. General: In severe respiratory distress and acutely ill-appearing and encephalopathic. HEENT:Pinpoint pupils. NCAT. Wide-based neck. No buccal lesions. Oropharynx clear. Dry mucous membranes. Neck: Mild JVD. No bruits. CV/lungs: S1-S2 S2 within normal limits RRR. Bilateral rales with decreased breath sounds left versus right Abdomen: Mild distention due to insufflation from BiPAP Extremities/skin: Patient's bilateral hands are cyanotic as well as bilateral feet. RUE edema. Bilateral lower extremity chronic edema with erythematous involvement to the anterior pretibial regions with no necrotic or purulent lesions. Bilateral bipedal edema with 1+ pulses dorsalis pedis bilaterally. Neuro: Grossly intact Labs: Reviewed Imaging studies: Reviewed Assessment/plan: (1) Sepsis secondary to parapneumonic effusion. -WBC up to 22K patient is also on steroids. -Patient has hypoxemic encephalopathy, Is currently obtunded due to her persistent hypoxemia and being on BiPAP -Continues to be on IV vancomycin/Merrem -Awaiting pleural fluid analysis which is a send out from patient's prior USG right sided Thoracentesis yielding 750 cc of yellow clear fluid. (2) Acute hypoxemic respiratory failure sec Worsening bilateral pneumonia with parapneumonic effusion, Multifactorial causes. -Patient is on continuous BiPAP at the present moment, continues to deteriorate. Shortness of breath secondary to bilateral pleural effusions, Status post ultrasound-guided right-sided thoracentesis with 750 cc of yellow turbid fluid out. LDH is elevated however lites criteria cannot be calculated due to pleural fluid sending out. WBC of pleural fluid 174, neutrophils 90%, lymphocytes 77%. Currently no growth. Serial ABGs while on Bipap show PO2 trending from 84.2>57.1>56.7>102.7>58>66. Family discussion and is agreeable to comfort care measures now. Patient is actively dying and awaiting other family members to attend to bedside to say last goodbyes. (3) Worsening Bilateral pneumonia With associated bilateral moderate pleural effusion. Status post right-sided thoracentesis with 750 cc of yellow cloudy fluid. Surgery has deferred off of placing chest tube due to risk versus benefit ratio. Patient with poor prognosis. Patient will likely succumb to worsening bilateral pneumonia with possible ARDS. In addition patient has pleural fluid analysis that has not yet resulted from lab to know if this is a empyema (Eudate) versus transmitted CTA shows no evidence of pulmonary embolism to indicate a flash pulmonary edema however moderate bilateral pleural effusion may be infectious versus malignant. Component of diastolic dysfunction as patient had hyperdynamic ejection fraction on prior echo. Is currently on a nitro patch. (4) Acute on Chronic COPD exacerbation. -Patient remains on IV steroids. Patient had tobacco dependence from age [age]. No high home oxygen use. No evidence of CO2 or hypercapnia on serial ABGs. Patient remains on 100% FiO2 on BiPAP. (5) Moderate pulmonary hypertension with elevated right ventricular pressures seen on echocardiogram with hyperdynamic function. Patient to continue with Nitropatch. (6) Acute renal insufficiency with unknown baseline -Worsening renal insufficiency with unknown baseline, likely as result of sepsis as it pertains to parapneumonic effusions and being on high-dose Lasix. Patient has been discontinued off of IV Lasix and other nephrotoxic agents and only on Nitropatch currently. (7) Mediastinal adenopathy with largest measuring to 3 cm, Along with retroperitoneal lymphadenopathy -CT chest with Contrast shows multiple low left pelvis soft tissue densities along with enlarged retroperitoneal lymph nodes concerning for metastatic primary colon CA versus metastatic satellite implants versus endometrial carcinoma. Would favor endometrial carcinoma as CEA/alpha-fetoprotein unremarkable. -Due to the fact that this is high chance of malignancy patient's DNR status would prohibit such invasive or aggressive interventions in terms of biopsies and/or if it is cancer to pursue chemoradiation. -Malignant pleural effusions is not entirely excluded (8) Suspected Malignant liver masses With metastatic process -CT abdomen pelvis with IV contrast showed a 3.6 x 2.6 cm rounded hypodense mass with segment 7 of the liver. There is a 3.7 x 2.1 cm hypodense mass with segment 6 of the liver. There are enlarged retroperitoneal lymph nodes with associated 4.5 x 4.3 cm heterogeneous soft tissue density at the left margin of the rectum. In additionThere is a heterogeneous density of the central uterus with endometrial air. Differential diagnosis include primary colon cancer with adjacent satellite lesions versus endometrial CA. (9) RVR afib with SVT: Resolved -Patient remains in normal sinus rhythm. Patient currently on a nitro patch. (10) Acute on Chronic Diastolic CHF pt ECHO reveals EF>75%, but with RVSP 51 mmHG, and in pulmonary edema, and elevated BNP IV Lasix has been discontinued. As well as other IV cardiac meds. (11) PVD with Chronic bilateral lower extremity edema with erythematous anterior tibial regions. Patient has had chronic bilateral lower extremity edema with erythema and [place] [facility] [place]. Advance care education and counseling provided with an updated POLST. Family discussion on patient's medical condition along with anticipating patient will succumb to worsening bilateral pneumonia with associated hypoxemic respiratory failure not amenable to surgical or invasive interventions at this point. In addition suspected underlying metastatic cancer seen on CT abdomen pelvis studie s. CODE STATUS: DNR. The had brought an old POLST dated 2016 which shows DNR with comfort care measures will revisit and update existing POLST. Total critical care time 35 minutes
[2018-10-04] MEDS: METOPROLOL 5 MG/5 ML VIAL IVP PRN (10:47)
[2018-10-04] MEDS ORDERED: SODIUM CHLORIDE 0.9% MINIBAG 100 ML IV ONE (10:59)
[2018-10-04] MEDS ORDERED: VANCOMYCIN INJ 1 GM, VANCOMYCIN INJ 500 MG in SODIUM CHLORIDE 0.9% 500 ML IV SCH (11:00)
[2018-10-04 13:22] VITALS: BP 125/81
--- NOTE | 2018-10-04 14:06 | DISCHARGE SUMMARY ---
Discharge Summary Admit Date: 09/28/18 Discharge Date: 10/04/18 Discharging Provider: Dr. Moralez Primary Care Provider: Joanna Shelby Code Status: Do Not Attempt Resuscitation Condition at Discharge: Critical Discharge Disposition: 20 - DIAGNOSES Admission Diagnoses: Problem List: 1. Bilateral pneumonia 2. Acute COPD exacerbation with hypoxemia 3. Acute hypoxemic respiratory failure (not O2 dependent) he 4. Acute kidney injury with unknown renal baseline 5. Chronic Atrial fibrillation 6. Type II AR with demand ischemia/Elevated troponin 7. Moderate dementia Discharge Diagnoses with Status of Each Condition: Assessment/plan: (1) Sepsis secondary to parapneumonic effusion; Poor prognosis (2) Acute hypoxemic respiratory failure sec Worsening bilateral pneumonia with parapneumonic effusion, Multifactorial causes. Poor prognosis (3) Worsening Bilateral pneumonia With associated bilateral moderate pleural effusion. Suspicious for ARDS. (4) Acute on Chronic COPD exacerbation. Poor prognosis (5) Moderate pulmonary hypertension with elevated right ventricular pressures seen on echocardiogram with hyperdynamic function. Poor prognosis (6) Acute renal insufficiency with unknown baseline, Poor prognosis (7) Mediastinal adenopathy with largest measuring to 3 cm, Along with retroperitoneal lymphadenopathy, Poor prognosis (8) Suspected Malignant liver masses With metastatic process, Poor prognosis (9) RVR afib with SVT: Resolved (10) Acute on Chronic Diastolic CHF, Poor prognosis (11) PVD with Chronic bilateral lower extremity edema with erythematous anterior tibial regions. 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 The patient was accompanied by her , Nacho who reports that his has not been acting herself beginning about 4 days ago. She normally can walk with her walker and get to her chair where she watches TV all day or to the bathroom. She reported that she has been generally weak, with a poor appetite, and a pro ductive cough. They believe that she last saw her PCP in [place] a few weeks ago for a regular check up. Upon arrival to the ED the patient was found to be hypoxic with a room air oxygen saturation of 89%, temp of 36.9, heart rate of 98, respiratory rate of 22, B/P of 164/59. Labs show an elevated WBC count of 18.3, anemia with an H/H of 10.7/33.3, an elevated troponin of 0.14, BNP of 194, creatinine of 1.5 with an unknown baseline, sodium of 133, K of 4.9, BUN of 40, and a low GFR of 33. A urine sample appeared normal. Imaging confirmed bilateral PNA, an IVC US measurement showed dehydration with a deficit ~ 1L. On exam, she denies chest pain, chest pressure, nausea, dizziness, and denied a heart history, although a poor historian. She denies fevers, chills, vomiting, or diarrhea at home but admits to her also being sick. She will be admitted for treatment of PNA as an inpatient. - HOSPITAL COURSE Hospital Course: Otilia Diane is a morbidly obese 88-year-old female with a past medical history of hypertension hyperlipidemia chronic pain dementia COPD induced by long-term tobacco dependence, chronic diastolic heart failure, osteoporosis, and urinary incontinence who presented accompanied By her Nacho who reported that his has not been acting herself beginning 4 days prior to admission. Patient was found to have a chest x-ray with bilateral infiltrates and associated pleural effusion. Patient initially was found to have an oxygen saturation of 89% with a T-max of 36.9 heart rate and blood pressures have slightly hypertensive. Patient initial admit white count was 18.3 and was anemic with a slightly elevated troponin and BNP level. Patient has an unknown baseline creatinine and on admit creatinine was 1.5 hypo-neutropenic. UA did not show any UTI however bilateral pneumonia was seen initially on chest x-ray with an IVC ultrasound measurement showing dehydration with a deficit of 1 L. Patient had possible aspiration pneumonia as bilateral infiltrates mainly involve the right base versus the left. Was initially on IV Unasyn and subsequently transitioned over to vancomycin plus Zosyn. Patient was then transferred to the ICU due to worsening hypoxemia for which bilateral pleural effusions of moderate size was seen on serial x-rays with serial ABGs noting only hypoxemia with no CO2 retention and no acidemia. Patient was aggressively medically managed under the purview of her existing POLST stating DNR with limited interventions. Patient had a CTA which revealed no PE despite elevated d-dimer attributable to worsening bilateral pneumonia. Patient had echocardiogram that showed hyperdynamic function with moderate pulmonary hypertension and elevated pressures RVSP. Patient went into rapid rate atrial fibrillation for which diltiazem drip was placed and subsequently discontinued due to patient converting to normal sinus rhythm. Patient was not anticoagulated during the interim, nitro patch was placed for afterload reduction, IV Lasix was aggressively Administer due to bilateral pleural effusions that were not amendable forS day ultrasound-guided thoracentesis. Patient did have right-sided ultrasound-guided thoracentesis yielding 750 cc of yellow clear fluid which appeared to be a transited however we did not see pleural fluid Gram stain and culture pH glucose LDH or total protein due to it being a sent out. Currently the cultures yielded negative growth to date. Palliative care consultation had been initiated when patient was in the ICU and discussion on hospice was entertained due to CT abdomen pelvis related revealing some liver masses with early metastatic spread and adenopathy/lymphadenopathy. Tumor markers were not elevated for CEA/alpha-fetoprotein. Endometrial carcinoma was entertained. Patient was subsequently converted to DNR with comfort care measures. Due to patient's DNR/ DNI status no aggressive interventions were pursued for underlying possible metastatic process.Unfortunately, despite aggressive medical management with early goal-d irected therapy for her sepsis and worsening pneumonia with suspected ARDS and worsening hypoxemia patient succumbed to bilateral worsening interstitial infiltrates and was refractory to BiPAP. Patient on 1350 with family at bedside and spiritual care provided. - ALLERGIES Allergies/Adverse Reactions: Allergies Allergy/AdvReac Type Severity Reaction Status Date / Time codeine AdvReac Emesis Verified 09/28/18 12:24 - MEDICATIONS Home Medications: Ambulatory Orders Medication Instructions Recorded Confirmed Aspirin [Adult Low Dose Aspirin EC] 81 mg PO DAILY 09/06/15 09/29/18 Calcium/D3/Mag Ox/Delicatessen Department Manager/Gustavo/Zn 1 each PO DAILY 09/06/15 09/29/18 [Caltrate+D3 Plus Mineral Minis] Chlorthalidone 25 mg PO DAILY 09/06/15 09/29/18 Cholecalciferol (Vitamin D3) 1,000 unit PO DAILY 09/06/15 09/29/18 [Vitamin D] Multivitamin-Minerals No.55 100 mcg PO DAILY 09/06/15 09/29/18 [Centrum Flavor Burst Adult Chw] Acetaminophen [Tylenol Extra 500 mg PO TID PRN 09/29/18 09/29/18 Strength] Atorvastatin Calcium 20 mg PO QPM 09/29/18 09/29/18 Furosemide [Lasix] 20 mg PO DAILY 09/29/18 09/29/18 Gabapentin [Neurontin] 300 mg PO TID 09/29/18 09/29/18 Losartan [Cozaar] 50 mg PO DAILY 09/29/18 09/29/18 Vitamin E (Dl,Tocopheryl Acet) 400 unit PO DAILY 09/29/18 09/29/18 [Vitamin E] diltiaZEM CD [Cardizem Cd] 240 mg PO DAILY 09/29/18 09/29/18 - PHYSICAL EXAM AT DISCHARGE General Appearance: positive: Other (No heart rate or breath sounds at 1350) Respiratory: positive: Other (No breath sounds at 1350) Cardiovascular: positive: Other (No heart tones at 1350) - LABS Result Diagrams: 10/03/18 06:59 10/03/18 06:59 - SEPSIS Current Stage of Sepsis: Sepsis Possible source of Sepsis: Pulmonary Sepsis Criteria: Recorded Heart Rate greater than 90 bpm, Recorded Respiratory Rate greater than 20, Respiratory: Increasing oxygen requirements, WBC count greater than 12,000 or less than 4000, DRUMS TEACHER: altered consciousness (unrelated to primary neuro pathology), SBP drop more than 40mHg - QUALITY (Female Hip Fx Only) Was patient sent home on osteoporosis medication?: No - FOLLOW UP Follow Up: Not applicable - TIME SPENT Time Spent in Discharge (Minutes): 35
== END 2018-10-04 16:30 | disposition expired | DRG 871 ==
LOC: EDUNIT# → ED 11:47 → MS3 15:47 → ICU 10-01 08:57
PROVIDERS: ADMIT Nurse Practitioner; ATTEND Nurse Practitioner Gerontology
PROC: 0W993ZZ Drainage of Right Pleural Cavity, Percutaneous Approach (ICD-10-PCS; principal; 2018-10-02)
DX: A41.9 Sepsis, unspecified organism (principal); I10 Essential (primary) hypertension; E78.00 Pure hypercholesterolemia, unspecified; M19.90 Unspecified osteoarthritis, unspecified site; M79.7 Fibromyalgia; G89.29 Other chronic pain; M54.9 Dorsalgia, unspecified; Z79.82 Long term (current) use of aspirin; Z88.6 Allergy status to analgesic agent; R09.02 Hypoxemia; E86.0 Dehydration; J18.1 Lobar pneumonia, unspecified organism; J96.01 Acute respiratory failure with hypoxia; I50.33 Acute on chronic diastolic (congestive) heart failure; J44.1 Chronic obstructive pulmonary disease with (acute) exacerbation; N17.9 Acute kidney failure, unspecified; C22.8 Malignant neoplasm of liver, primary, unspecified as to type; C79.9 Secondary malignant neoplasm of unspecified site; Z68.42 Body mass index [BMI] 45.0-49.9, adult; G93.1 Anoxic brain damage, not elsewhere classified; Z66 Do not resuscitate; I27.20 Pulmonary hypertension, unspecified; R59.0 Localized enlarged lymph nodes; I48.2 Chronic atrial fibrillation; I11.0 Hypertensive heart disease with heart failure; I73.9 Peripheral vascular disease, unspecified; E66.01 Morbid (severe) obesity due to excess calories; E78.5 Hyperlipidemia, unspecified; F03.90 Unspecified dementia, unspecified severity, without behavioral disturbance, psychotic disturbance, mood disturbance, and anxiety; Z87.891 Personal history of nicotine dependence; M81.0 Age-related osteoporosis without current pathological fracture; R32 Unspecified urinary incontinence; D64.9 Anemia, unspecified; R01.1 Cardiac murmur, unspecified; G47.30 Sleep apnea, unspecified; G30.9 Alzheimer's disease, unspecified; F02.80 Dementia in other diseases classified elsewhere, unspecified severity, without behavioral disturbance, psychotic disturbance, mood disturbance, and anxiety; R25.1 Tremor, unspecified; K21.9 Gastro-esophageal reflux disease without esophagitis; H54.7 Unspecified visual loss; H91.90 Unspecified hearing loss, unspecified ear; F32.9 Major depressive disorder, single episode, unspecified; R74.8 Abnormal levels of other serum enzymes; Z51.5 Encounter for palliative care
CPT/HCPCS: 32555; 36415; 36600; 51702; 71045; 71250; 71275; 74177; 76770; 80053; 80162; 81001; 81003; 81599; 82105; 82378; 82803; 83036; 83605; 83615; 83690; 83735; 83880; 84155; 84484; 84550; 85014; 85018; 85025; 85379; 85610; 87040; 87070; 87150; 87205; 87275; 87276; 89051; 93005; 93306; 93971; 94640; 94660; 96361; 96365; 96375; 99284; A9270; J1170; J1940; J2060; J2185; J2270; J3370; J7626; Q9967; 87086; 99222; 99283